=== PATIENT | female | born 2000 | race Caucasian/White ===

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

== ENCOUNTER 2020-01-26 16:26 | Emergency (ER) | payer MEDICAID, SELFPAY ==
[2020-01-26] VITALS (8 sets, daily range): BP systolic 106–128; BP diastolic 52–83; PULSE 100–130; RESP 16–19; TEMP 37.1–38.4; O2SAT 97–100; BMI 26.0
[2020-01-26 18:38] LABS: Basophils % 0.1 %; Hematocrit 40.6 % (37.0-47.0); Hemoglobin 12.9 g/dL (11.5-15.3); Lymphocytes # 0.5 10^3/uL (1.5-6.5); Lymphocytes % 4.9 %; Mean Corpuscular HGB Conc 31.8 g/dL (30.0-36.0); Mean Corpuscular Hemoglobin 26.2 pg (28.0-34.0); Mean Corpuscular Volume 82.4 fL (81-99); Mean Platelet Volume 12.9 fL (7.4-10.4); Monocytes # 0.4 10^3/uL (0.2-0.9); Monocytes % 3.7 %; Neutrophils # 9.49 10^3/uL (1.8-8.0); Neutrophils % 90.9 %; Nucleated Red Blood Cells % 0 %; Platelet Count 193 10^3/cmm (130-400); Red Blood Count 4.93 10^6/uL (4.1-5.3); Red Cell Distribution Width 15.8 % (12.1-15.1); White Blood Count 10.4 10^3/uL (4.5-13.0)
[2020-01-26 18:47] LABS: HCG, Serum Qual Positive (Negative)
--- NOTE | 2020-01-26 18:52 | USR_ITS ---
PROCEDURE INFORMATION: Exam: US First Trimester, Transabdominal Exam date and time: 01/26/2020 7:24 PM Age: 19 years old Clinical indication: Other: Back pain x1 week; Gestational age or lmp: 9w 5d; ; Additional info: Fever, back pain TECHNIQUE: Imaging protocol: Real-time transabdominal obstetrical ultrasound of the maternal pelvis and a first trimester , less than 14 weeks 0 days, with image documentation. COMPARISON: US OB <= 14 weeks fetus [id number] 01/09/2020 10:53 AM FINDINGS: Gestation: Single viable intrauterine with EGA 9 weeks 5 days. 3.5 mm yolk sac. Comparing sagittal image 6 at the beginning of the exam with image 74 at the end of the exam, the contour and position of the gestational sac appears to have changed. On image 6 there may have been a uterine contraction along the posterior wall uterus, and at the end of the exam there may have been uterine contraction over the uterine fundus. This could explain the change in shape and contour of the gestational sac. Embryonic/ heart rate: heart beat 212 bpm consistent with tachycardia which can occur from multiple causes. Placenta: Probable 1.8 x 2.1 x 1.0 cm subchorionic bleed. Amniotic fluid: Amniotic fluid is normal for gestational age. BIOMETRY: Estimated due date (AUA): KAYLI by ultrasound August 25, 2020. [place]-Rump length: 2.84 cm crown-rump length with EGA 8 weeks 6 days. MATERNAL: Uterus: See Gestation finding. Cervix: 3.3 cm closed cervix. Right adnexa: 3.4 x 1.6 x 2.4 cm right ovary with estimated volume 7.1 cc. Left adnexa: 2.0 x 1.9 x 1.6 cm left ovary with estimated volume 3.3 cc. Intraperitoneal space: No intraperitoneal free fluid. US/US OB <= 14 weeks fetus [id number] IMPRESSION: 1. Single viable intrauterine with EGA 9 weeks 5 days. 2. KAYLI by ultrasound August 25, 2020. 3. heart beat 212 bpm consistent with tachycardia which can occur from multiple causes. 4. Probable 1.8 x 2.1 x 1.0 cm subchorionic bleed. 5. 3.3 cm closed cervix. 6. Comparing sagittal image 6 at the beginning of the exam with image 74 at the end of the exam, the contour and position of the gestational sac appears to have changed. On image 6 there may have been a uterine contraction along the posterior wall uterus, and at the end of the exam there may have been uterine contraction over the uterine fundus. This could explain the change in shape and contour of the gestational sac.
--- NOTE | 2020-01-26 18:53 | USR_ITS ---
PROCEDURE INFORMATION: Exam: US Retroperitoneal; Complete; Kidneys and Bladder Exam date and time: 01/26/2020 7:24 PM Age: 19 years old Clinical indication: Pain; Other: Back; ; Additional info: Fever back pain TECHNIQUE: Imaging protocol: Real-time ultrasound of the retroperitoneum with image documentation. Complete exam focused on the kidneys and bladder. COMPARISON: US OB <= 14 weeks fetus [id number] 01/09/2020 10:53 AM FINDINGS: Right kidney: Normal. No stones. No hydronephrosis. Left kidney: Minimally dilated left renal pelvis at 1.2 cm. No obvious hydronephrosis at this time. Aorta: 1.3 cm abdominal aortic diameter. Bladder: Echogenic debris within the urinary bladder suggesting possible urinary tract infection. US/US renal BI* [id number] IMPRESSION: 1. Minimally dilated left renal pelvis at 1.2 cm. No obvious hydronephrosis at this time. 2. Echogenic debris within the urinary bladder suggesting possible urinary tract infection. 3. Unremarkable right kidney.
[2020-01-26 18:58] LABS: Alanine Aminotransferase < 5 U/L (0-33); Albumin Level 4.9 g/dL (3.5-5.2); Alkaline Phosphatase 117 IU/L (35-105); Anion Gap 18.7 (5-19); Aspartate Amino Transferase 10 U/L (0-32); Blood Urea Nitrogen 5 mg/dL (6-20); Calcium 9.8 mg/dL (8.5-10.5); Carbon Dioxide 22 mmol/L (22-29); Chloride 97 mmol/L (98-107); Glomerular Filtration Rate 128.8 mL/min (90-130); Glucose 100 mg/dL (65-115); Osmolality Calculated 275 mOsm/kg (285-295); Potassium 3.7 mmol/L (3.5-5.1); Sodium 134 mmol/L (136-145); Total Bilirubin 0.9 mg/dL (0.15-1.2); Total Protein 7.9 g/dL (6.6-8.7)
[2020-01-26 19:11] LABS: Bilirubin Urine Neg (Negative); Blood Urine 2+ (Negative); Glucose Urine UA Norm (Normal); Ketones Urine 3+ (Negative); Leukocyte Esterase Urine Negative (Negative); Nitrate Urine Positive (Negative); Protein Urine Trace (Negative); Specific Gravity, Urine 1.005 (1.005-1.030); Urine Color Yellow (Yellow); Urobilinogen Urine 4 mg/dL (Negative); pH Urine 5 (5-7)
[2020-01-26 19:14] LABS: Add Urine Culture? No; Bacteria Urine 4+ /hpf; Squamous Epithelial Cell Urine >100 /hpf (0-5); WBC Urine 80-100 /hpf (0-5)
--- NOTE | 2020-01-26 19:19 | W.ED.GENADLT ---
HPI - General Adult General: Chief complaint: General Medical Stated complaint: L flank pain, dizzy, fever Time Seen by Provider: 01/26/20 18:29 History of Present Illness: HPI narrative: 19-year-old female with a history of pyelonephritis presents 10 weeks . She complains of bilateral lower back pain with some dysuria for the past week or so. It is increased over time. She has a fever today. She is nauseated but has not thrown up she says that her symptoms are nearly exactly the same as the time prior when she had pyelonephritis. She has experienced no vaginal bleeding or loss of fluid. She had an ultrasound at 7 weeks showing a heartbeat. Onset (ago): day(s) Location: back Radiation: non-radiation Severity: moderate Quality: stabbing and aching Pain Consistency: constant Relieving factors: none Exacerbating factors: movement Associated symptoms: Reports malaise and nausea; Deny chest pain, confusion, dyspnea, headache(s), rash, short of breath, vomiting or weakness Review of Systems Const: Reports: malaise Eyes: Denies: blurry vision ENMT: Denies: odynophagia, dental pain or sinus pain Card: Denies: chest pain Resp: Denies: dyspnea, productive cough, non-productive cough or wheezing GI: Reports: nausea; Denies: vomiting : Reports: dysuria and urinary frequency; Denies: urinary urgency or hematuria Musc: Reports: back pain; Denies: neck pain Skin/Breast: Denies: rash Neuro: Denies: headache(s), confusion or seizure-like activity Psych: Denies: anxiety PFSH ED PFSH: Social History (Updated 01/26/20 @ 17:15 by Brennen Medina RN) Smoking and tobacco status: never smoked Alcohol intake: never Substance/Drug Use: never Number of children: 1 Female Reproductive History: Date of last menstrual period: 09/25/19 Physical Exam Const: GENERAL APPEARANCE: well developed ORIENTATION/CONSCIOUSNESS: Yes oriented to person, Yes oriented to place and Yes oriented to time HENMT: COMMON NORMALS: normocephalic, external ears normal and Normal external nose present HEAD & SCALP: normocephalic FACE & SINUS: normal facial exam NOSE: Normal external nose present and No nasal discharge present EXTERNAL EAR: Yes external ears normal Eye: COMMON NORMALS: Equal, round and reactive pupils present, EOMs intact bilaterally and conjunctivae normal EYELID: eyelids normal CONJUNCTIVA: Yes conjunctivae normal PUPIL: Yes Equal, round and reactive pupils present Neck/C-Spine: COMMON NORMALS: full ROM GENERAL: No tracheal deviation Chest: COMMONS NORMALS: normal inspection of the chest CHEST: No tenderness Resp: COMMON NORMALS: clear to auscultation bilaterally EFFORT & INSPECTION: No tachypneic, No respiratory distress, No retractions, No uses accessory muscles and No tracheal deviation AUSCULTATION: clear to auscultation bilaterally, no rhonchi, no wheezes and lung sounds not diminished Cardio: COMMON NORMALS: regular rate and regular rhythm RATE: regular rate RHYTHM: regular rhythm HEART SOUNDS: no murmurs PERIPHERAL PULSES: radial pulses present GI: INSPECTION: No abdominal distension AUSCULTATION: No Hyperactive bowel sounds present and No Hypoactive bowel sounds present PALPATION: No Guarding due to palpation present (GI) and No Rigid due to palpation PERCUSSION: no dullness to percussion and no tympanic to percussion : COMMON NORMALS: Yes no CVA tenderness BLADDER/KIDNEY EXAM: Yes no CVA tenderness Back/Pelvis: COMMON NORMALS: no CVA tenderness Neuro: SENSORIUM/ORIENTATION: Yes oriented to person, Yes oriented to place and Yes oriented to time Psych: COMMON NORMALS: mental status grossly normal Skin: COMMON NORMALS: no rashes or lesions noted GENERAL SKIN EXAM: no rashes or lesions noted Course Consultations: Consultation #1: karo Time: 21:53 Vital Signs: Vital signs: Vital Signs Temperature 98.8 F 01/26/20 22:11 Pulse Rate 120 H 01/26/20 22:11 Respiratory Rate 18 01/26/20 22:11 Blood Pressure 109/77 01/26/20 22:11 Pulse Oximetry 97 01/26/20 22:11 MDM - General Adult MDM Narrative: Medical decision making narrative: 19-year-old G3, P1 presenting with bilateral low back pain, and some dysuria with fever she was diagnosed earlier today with UTI in clinic. She was not able to get her antibiotics filled. She comes in with a fever. She is not vomiting. She received 1 L of IV fluid, with 1 g of Rocephin. Urine culture from here in clinic is pending ultrasound shows a 9-week 5-day , intrauterine, with an elevated heart rate consistent with maternal fever. There is a small subchorionic bleed. Patient does not have any vaginal bleeding, and the cervix is closed. There is no hydronephrosis on ultrasound. Spoke with her medical writer. In the absence of vomiting, with a white count of only 10, and above findings she could go home. She agrees. Pain control, continue the antibiotics prescribed to her earlier today, which is cefuroxime, with control of fever and plenty of hydration. She knows to return for any worsening symptoms, continued fever, or vaginal bleeding. Lab Data: Labs: Lab Results 01/26/20 01/26/20 01/26/20 Range/Units 18:16 18:16 18:16 WBC 10.4 (4.5-13.0) 10^3/ uL RBC 4.93 (4.1-5.3) 10^6/u L Hgb 12.9 (11.5-15.3) g/dL Hct 40.6 (37.0-47.0) % MCV 82.4 (81-99) fL MCH 26.2 L (28.0-34.0) pg MCHC 31.8 (30.0-36.0) g/dL RDW 15.8 H (12.1-15.1) % Plt Count 193 (130-400) 10^3/c mm MPV 12.9 H (7.4-10.4) fL Neut % (Auto) 90.9 % Lymph % (Auto) 4.9 % Esmeralda % (Auto) 3.7 % Eos % (Auto) 0.0 % Baso % (Auto) 0.1 % Neut # (Auto) 9.49 H (1.8-8.0) 10^3/u L Lymph # (Auto) 0.5 L (1.5-6.5) 10^3/u L Esmeralda # (Auto) 0.4 (0.2-0.9) 10^3/u L Eos # (Auto) 0.0 (0.0-0.8) 10^3/u L Baso # (Auto) 0.0 (0.0-0.1) 10^3/u L Nucleated RBC % (a uto) 0 % Nucleated RBCs # 0.0 /100WBC Sodium 134 L (136-145) mmol/L Potassium 3.7 (3.5-5.1) mmol/L Chloride 97 L (98-107) mmol/L Carbon Dioxide 22 (22-29) mmol/L Anion Gap 18.7 (5-19) BUN 5 L (6-20) mg/dL Creatinine 0.6 (0.5-0.9) mg/dL GFR Calculation 128.8 (90-130) mL/min Glucose 100 (65-115) mg/dL Calculated Osmolal ity 275 L (285-295) mOsm/k g Calcium 9.8 (8.5-10.5) mg/dL Total Bilirubin 0.9 (0.15-1.2) mg/dL AST 10 (0-32) U/L ALT < 5 (0-33) U/L Alkaline Phosphata se 117 H (35-105) IU/L Total Protein 7.9 (6.6-8.7) g/dL Albumin 4.9 (3.5-5.2) g/dL Globulin 3.0 (1.3-4.6) g/dL HCG, Qual Positive H (Negative) Ser , Fawn i-Qnt mIU/mL Urine Color (Yellow) Urine Appearance (CLEAR) Urine pH (5-7) Ur Specific Gravit y (1.005-1.030) Urine Protein (Negative) Urine Glucose (UA) (Normal) Urine Ketones (Negative) Urine Blood (Negative) Urine Nitrate (Negative) Urine Bilirubin (Negative) Urine Urobilinogen (Negative) mg/dL Ur Leukocyte Kamila ase (Negative) Urine RBC (0-2) /hpf Urine WBC (0-5) /hpf Ur Squamous Epith Cells (0-5) /hpf Amorphous Sediment Urine Bacteria (NONE) /hpf 01/26/20 01/26/20 Range/Units 18:16 18:40 WBC (4.5-13.0) 10^3/ uL RBC (4.1-5.3) 10^6/u L Hgb (11.5-15.3) g/dL Hct (37.0-47.0) % MCV (81-99) fL MCH (28.0-34.0) pg MCHC (30.0-36.0) g/dL RDW (12.1-15.1) % Plt Count (130-400) 10^3/c mm MPV (7.4-10.4) fL Neut % (Auto) % Lymph % (Auto) % Esmeralda % (Auto) % Eos % (Auto) % Baso % (Auto) % Neut # (Auto) (1.8-8.0) 10^3/u L Lymph # (Auto) (1.5-6.5) 10^3/u L Esmeralda # (Auto) (0.2-0.9) 10^3/u L Eos # (Auto) (0.0-0.8) 10^3/u L Baso # (Auto) (0.0-0.1) 10^3/u L Nucleated RBC % (a uto) % Nucleated RBCs # /100WBC Sodium (136-145) mmol/L Potassium (3.5-5.1) mmol/L Chloride (98-107) mmol/L Carbon Dioxide (22-29) mmol/L Anion Gap (5-19) BUN (6-20) mg/dL Creatinine (0.5-0.9) mg/dL GFR Calculation (90-130) mL/min Glucose (65-115) mg/dL Calculated Osmolal ity (285-295) mOsm/k g Calcium (8.5-10.5) mg/dL Total Bilirubin (0.15-1.2) mg/dL AST (0-32) U/L ALT (0-33) U/L Alkaline Phosphata se (35-105) IU/L Total Protein (6.6-8.7) g/dL Albumin (3.5-5.2) g/dL Globulin (1.3-4.6) g/dL HCG, Qual (Negative) Ser , [place]Qnt 61301.00 mIU/mL Urine Color Yellow (Yellow) Urine Appearance Sl cloudy A (CLEAR) Urine pH 5 (5-7) Ur Specific Gravit y 1.005 (1.005-1.030) Urine Protein Trace (Negative) Urine Glucose (UA) Norm (Normal) Urine Ketones 3+ H (Negative) Urine Blood 2+ H (Negative) Urine Nitrate Positive H (Negative) Urine Bilirubin Neg (Negative) Urine Urobilinogen 4 H (Negative) mg/dL Ur Leukocyte Kamila ase Negative (Negative) Urine RBC 5-10 H (0-2) /hpf Urine WBC 80-100 H (0-5) /hpf Ur Squamous Epith Cells >100 H (0-5) /hpf Amorphous Sediment Not Reportable Urine Bacteria 4+ H (NONE) /hpf Discharge Plan Discharge Patient Disposition: Home Clinical Impression: Pyelonephritis Subchorionic hematoma Qualifiers: Fetus number: single or unspecified fetus Trimester: first trimester Qualified Code(s): O41.8X10 - Other specified disorders of amniotic fluid and membranes, first trimester, not applicable or unspecified Condition: Stable Prescriptions: [place] 7.5-325 mg tablet 1 tab PO TID PRN (Reason: pain) Qty: 10 RF: 0 Reglan 10 mg tablet 10 mg PO Q6H PRN (Reason: nausea and vomiting) Qty: 10 RF: 0 No Action Protonix [address] for susp in packet 40 mg PO DAILY Qty: 10 RF: 0 ferrous sulfate 325 mg (65 mg iron) Tablet,Delayed Release (Dr/Ec) 325 mg PO BIDWM Qty: 60 RF: 0 Discharge Orders: Discharge Order (Routine); Ordered 01/26/20 Ordered By: Jere Stewart Referrals: [facility], [place], [Family Provider] - Kwaku Barber MD [Primary Care Provider] - 4-7 days Discharge Diet: Advance as tolerated Discharge Activity: Limit activity as instructed Patient Instructions: Acute Pyelonephritis (ED) Activity Restrictions/Additional Instructions: Return for continued fever greater than 100 despite 3 doses of antibiotics, vomiting, worsening pain despite treatment, or the development of vaginal bleeding. Pelvic rest until seen by your doctor, which means limit lifting to 10 to 15 pounds, limit squatting and stairs, and limit sexual intercourse. Discharge Date/Time: 01/26/20 22:12 Coding Level of Care Code ED Mechanic Assistant for Chg Fwd Exam Comprehensive
[2020-01-26] MEDS: cefTRIAXone 1,000 MG in sodium chloride 0.9% (plus) 50 ML 100 MG IV (19:22)
[2020-01-26] MEDS: sodium chloride 0.9% 1,000 ML 999 ML IV (19:23)
[2020-01-26] MEDS: ondansetron 2 mg/ML SDV 2 mL 4 MG IVP (20:22)
[2020-01-26] MEDS: morphine 4 mg/mL SDV 1 mL IVP (20:24)
[2020-01-26] MEDS: acetaminophen 500 mg Tablet 1000 MG PO (20:56)
== END 2020-01-26 22:12 | disposition home or self-care (01) ==
PROVIDERS: Emergency Medicine; Emergency Provider Emergency Medicine; PCP Family Medicine
DX: O41.8X10 Other specified disorders of amniotic fluid and membranes, first trimester, not applicable or unspecified (principal); O23.01 Infections of kidney in pregnancy, first trimester; Z3A.09 9 weeks gestation of pregnancy
CPT/HCPCS: 12345; 36415; 76770; 76801; 80053; 81001; 84702; 84703; 85025; 96365; 96375; 99283; 99284; J0696; J2270; J2405; J7030

== ENCOUNTER 2020-01-27 15:00 | Inpatient (IN) | payer MEDICAID, SELFPAY ==
[2020-01-27] VITALS (7 sets, daily range): BP systolic 113–122; BP diastolic 70–83; PULSE 92–123; RESP 14–18; TEMP 37.1–37.7; O2SAT 98–100; BMI 26.4
--- NOTE | 2020-01-27 15:35 | ED_ITS ---
Documented by User: ROSA Lyons 01/28/20 13:59 HPI - General Adult General: Chief complaint: Abdominal Pain Stated complaint: Abdominal Pain Time Seen by Provider: 01/27/20 15:30 History of Present Illness: HPI narrative: Patient was seen here in the ER last night diagnosed pyelonephritis ER doc try to get her to be admitted patient 1 go home. Patient says she feels worse today her low back hurts been running fever she is dizzy when she sits up or stands up. Has not been vomiting. Denies any shortness of breath. MD complaint: pyleonephritis with symptoms Onset (ago): day(s) Location: back Radiation: non-radiation Severity: moderate Severity scale (1-10): 3 Exacerbating factors: movement Associated symptoms: Reports fevers/chills and other (Flank discomfort and d izziness); Deny chest pain, dyspnea, headache(s), nausea, rash or vomiting Review of Systems Const: Denies: fever(s), chills or body aches Eyes: Denies: change in vision or blurry vision ENMT: Denies: throat pain or nasal congestion Card: Denies: chest pain or dyspnea on exertion Resp: Denies: dyspnea, productive cough or non-productive cough GI: Denies: abdominal pain, nausea or vomiting : Reports: flank pain Musc: Denies: extremity pain Skin/Breast: Denies: rash Neuro: Reports: dizziness; Denies: headache(s) Psych: Denies: anxiety or depression Vj/Lymph: Denies: easy bruising PFSH ED PFSH: Social History (Updated 01/26/20 @ 17:15 by Brennen Medina RN) Smoking and tobacco status: never smoked Alcohol intake: never Number of children: 1 Female Reproductive History: Date of last menstrual period: 09/25/19 Physical Exam Const: COMMON NORMALS: no acute distress, average body habitus and patient oriented x3 HENMT: COMMON NORMALS: normocephalic HEAD & SCALP: normal to inspection and normocephalic FACE & SINUS: normal facial exam Eye: COMMON NORMALS: conjunctivae normal GENERAL EYE: appearance normal, both eyes and all related structures CONJUNCTIVA: Yes conjunctivae normal Neck/C-Spine: COMMON NORMALS: no JVD Chest: COMMONS NORMALS: normal inspection of the chest Resp: COMMON NORMALS: normal respiratory effort and clear to auscultation bilaterally AUSCULTATION: clear to auscultation bilaterally Cardio: COMMON NORMALS: no JVD, regular rate and regular rhythm RATE: regular rate RHYTHM: regular rhythm GI: COMMON NORMALS: Normal to inspection, nondistended, normoactive bowel sounds present : COMMON NORMALS: No no CVA tenderness BLADDER/KIDNEY EXAM: No no CVA tenderness Back/Pelvis: COMMON NORMALS: negative for no CVA tenderness Extremity: COMMON NORMALS: normal to inspection and full ROM Neuro: COMMON NORMALS: patient oriented x3 Course Vital Signs: Vital signs: Vital Signs Temperature 98.5 F 01/28/20 12:00 Pulse Rate 86 01/28/20 12:00 Respiratory Rate 18 01/28/20 12:00 Blood Pressure 109/71 01/28/20 12:00 Pulse Oximetry 97 01/28/20 04:00 [facility] - General Adult Lab Data: Labs: Lab Results 01/27/20 01/27/20 01/27/20 Range/Units 15:39 15:39 15:39 WBC 11.3 (4.5-13.0) 10^3/ uL RBC 4.46 (4.1-5.3) 10^6/u L Hgb 11.8 (11.5-15.3) g/dL Hct 37.1 (37.0-47.0) % MCV 83.2 (81-99) fL MCH 26.5 L (28.0-34.0) pg MCHC 31.8 (30.0-36.0) g/dL RDW 15.6 H (12.1-15.1) % Plt Count 143 (130-400) 10^3/c mm MPV 12.5 H (7.4-10.4) fL Neut % (Auto) 86.4 % Lymph % (Auto) 5.2 % Glades % (Auto) 7.8 % Eos % (Auto) 0.0 % Baso % (Auto) 0.2 % Neut # (Auto) 9.71 H (1.8-8.0) 10^3/u L Lymph # (Auto) 0.6 L (1.5-6.5) 10^3/u L Glades # (Auto) 0.9 (0.2-0.9) 10^3/u L Eos # (Auto) 0.0 (0.0-0.8) 10^3/u L Baso # (Auto) 0.0 (0.0-0.1) 10^3/u L Nucleated RBC % (a uto) 0 % Nucleated RBCs # 0.0 /100WBC Sodium 130 L (136-145) mmol/L Potassium 3.4 L (3.5-5.1) mmol/L Chloride 97 L (98-107) mmol/L Carbon Dioxide 20 L (22-29) mmol/L Anion Gap 16.4 (5-19) BUN 5 L (6-20) mg/dL Creatinine 0.5 (0.5-0.9) mg/dL GFR Calculation 158.9 H (90-130) mL/min Glucose 100 (65-115) mg/dL Calculated Osmolal ity 267 L (285-295) mOsm/k g Lactate (0.5-2.2) mmol/L Calcium 9.1 (8.5-10.5) mg/dL Magnesium (1.7-2.2) mg/dL Total Bilirubin 0.9 (0.15-1.2) mg/dL AST 10 (0-32) U/L ALT 6 (0-33) U/L Alkaline Phosphata se 107 H (35-105) IU/L Total Protein 7.3 (6.6-8.7) g/dL Albumin 4.1 (3.5-5.2) g/dL Globulin 3.2 (1.3-4.6) g/dL Lipase 12 L (13-60) U/L HCG, Qual Positive H (Negative) Urine Color (Yellow) Urine Appearance (CLEAR) Urine pH (5-7) Ur Specific Gravit y (1.005-1.030) Urine Protein (Negative) Urine Glucose (UA) (Normal) Urine Ketones (Negative) Urine Blood (Negative) Urine Nitrate (Negative) Urine Bilirubin (Negative) Urine Urobilinogen (Negative) mg/dL Ur Leukocyte Kamila ase (Negative) Urine RBC (0-2) /hpf Urine WBC (0-5) /hpf Ur Squamous Epith Cells (0-5) /hpf Ur Transition Epit h Cell /hpf Amorphous Sediment Urine Bacteria (NONE) /hpf Urine Mucus /hpf 01/27/20 01/27/20 01/27/20 Range/Units 15:39 15:51 16:43 WBC (4.5-13.0) 10^3/ uL RBC (4.1-5.3) 10^6/u L Hgb (11.5-15.3) g/dL Hct (37.0-47.0) % MCV (81-99) fL MCH (28.0-34.0) pg MCHC (30.0-36.0) g/dL RDW (12.1-15.1) % Plt Count (130-400) 10^3/c mm MPV (7.4-10.4) fL Neut % (Auto) % Lymph % (Auto) % Glades % (Auto) % Eos % (Auto) % Baso % (Auto) % Neut # (Auto) (1.8-8.0) 10^3/u L Lymph # (Auto) (1.5-6.5) 10^3/u L Glades # (Auto) (0.2-0.9) 10^3/u L Eos # (Auto) (0.0-0.8) 10^3/u L Baso # (Auto) (0.0-0.1) 10^3/u L Nucleated RBC % (a uto) % Nucleated RBCs # /100WBC Sodium (136-145) mmol/L Potassium (3.5-5.1) mmol/L Chloride (98-107) mmol/L Carbon Dioxide (22-29) mmol/L Anion Gap (5-19) BUN (6-20) mg/dL Creatinine (0.5-0.9) mg/dL GFR Calculation (90-130) mL/min Glucose (65-115) mg/dL Calculated Osmolal ity (285-295) mOsm/k g Lactate 0.9 (0.5-2.2) mmol/L Calcium (8.5-10.5) mg/dL Magnesium 1.8 (1.7-2.2) mg/dL Total Bilirubin (0.15-1.2) mg/dL AST (0-32) U/L ALT (0-33) U/L Alkaline Phosphata se (35-105) IU/L Total Protein (6.6-8.7) g/dL Albumin (3.5-5.2) g/dL Globulin (1.3-4.6) g/dL Lipase (13-60) U/L HCG, Qual (Negative) Urine Color Yellow (Yellow) Urine Appearance Hazy A (CLEAR) Urine pH 5 (5-7) Ur Specific Gravit y 1.020 (1.005-1.030) Urine Protein Trace (Negative) Urine Glucose (UA) Norm (Normal) Urine Ketones 3+ H (Negative) Urine Blood Trace H (Negative) Urine Nitrate Negative (Negative) Urine Bilirubin Neg (Negative) Urine Urobilinogen 1 H (Negative) mg/dL Ur Leukocyte Kamila ase 2+ H (Negative) Urine RBC 0-4 H (0-2) /hpf Urine WBC 55-80 H (0-5) /hpf Ur Squamous Epith Cells 25-40 H (0-5) /hpf Ur Transition Epit h Cell 0-4 /hpf Amorphous Sediment Not Reportable Urine Bacteria 2+ H (NONE) /hpf Urine Mucus 2+ /hpf Discharge Plan Discharge Patient Disposition: Placed in Observation Admit Provider: Kwaku Barber Clinical Impression: Pyelonephritis Currently Qualifiers: Weeks of gestation: 10 weeks Qualified Code(s): Z3A.10 - 10 weeks gestation of Condition: Stable Referrals: Kwaku Barber MD [Primary Care Provider] - Discharge Date/Time: 01/27/20 17:44 Sign Out Sign Out Data: Patient Sign Out occurred on 01/27/20 at 16:49. Patient's care was discussed, and care was transferred from to Indu Boland. Coding Level of Care Code ED Automatic Winder Operator for Chg Fwd Exam Comprehensive Documented by User: Indu Boland 01/27/20 17:07 HPI - General Adult General: Chief complaint: Abdominal Pain Stated complaint: Abdominal Pain Time Seen by Provider: 01/27/20 15:30 PFSH ED PFSH: Social History (Updated 01/26/20 @ 17:15 by Brennen Medina RN) Smoking and tobacco status: never smoked Alcohol intake: never Number of children: 1 Course Vital Signs: Vital signs: Vital Signs Temperature 98.5 F 01/28/20 12:00 Pulse Rate 86 01/28/20 12:00 Respiratory Rate 18 01/28/20 12:00 Blood Pressure 109/71 01/28/20 12:00 Pulse Oximetry 97 01/28/20 04:00 MDM - General Adult MDM Narrative: Medical decision making narrative: 0615 -[facility] Patient remains tachycardic and nauseated but has kept down some water here. Her pain is still significant but she does say slightly improved with IV fluids. Patient was offered admission last night but declined. Today her white count is slightly higher and still her urine shows signs of infection. Denies any vaginal discharge or bleeding. Bedside ultrasound by me revealed a normal heart rate with a small intrauterine . Patient does not have any significant flank pain or abdominal pain at this time. I reviewed the case in full with Dr. Barber who is agreeable to admission for UTI with uncontrolled pain and nausea. Patient will of had 2 L of normal saline here along with IV Rocephin, blood cultures and lactic are pending. Patient will get study IV fluids on the floor along with continued IV antibiotics. Overall at this time she is much improved. Lab Data: Attestation: I reviewed the patient's lab results. Labs: Lab Results 01/27/20 01/27/20 01/27/20 Range/Units 15:39 15:39 15:39 WBC 11.3 (4.5-13.0) 10^3/ uL RBC 4.46 (4.1-5.3) 10^6/u L Hgb 11.8 (11.5-15.3) g/dL Hct 37.1 (37.0-47.0) % MCV 83.2 (81-99) fL MCH 26.5 L (28.0-34.0) pg MCHC 31.8 (30.0-36.0) g/dL RDW 15.6 H (12.1-15.1) % Plt Count 143 (130-400) 10^3/c mm MPV 12.5 H (7.4-10.4) fL Neut % (Auto) 86.4 % Lymph % (Auto) 5.2 % Glades % (Auto) 7.8 % Eos % (Auto) 0.0 % Baso % (Auto) 0.2 % Neut # (Auto) 9.71 H (1.8-8.0) 10^3/u L Lymph # (Auto) 0.6 L (1.5-6.5) 10^3/u L Glades # (Auto) 0.9 (0.2-0.9) 10^3/u L Eos # (Auto) 0.0 (0.0-0.8) 10^3/u L Baso # (Auto) 0.0 (0.0-0.1) 10^3/u L Nucleated RBC % (a uto) 0 % Nucleated RBCs # 0.0 /100WBC Sodium 130 L (136-145) mmol/L Potassium 3.4 L (3.5-5.1) mmol/L Chloride 97 L (98-107) mmol/L Carbon Dioxide 20 L (22-29) mmol/L Anion Gap 16.4 (5-19) BUN 5 L (6-20) mg/dL Creatinine 0.5 (0.5-0.9) mg/dL GFR Calculation 158.9 H (90-130) mL/min Glucose 100 (65-115) mg/dL Calculated Osmolal ity 267 L (285-295) mOsm/k g Lactate (0.5-2.2) mmol/L Calcium 9.1 (8.5-10.5) mg/dL Magnesium (1.7-2.2) mg/dL Total Bilirubin 0.9 (0.15-1.2) mg/dL AST 10 (0-32) U/L ALT 6 (0-33) U/L Alkaline Phosphata se 107 H (35-105) IU/L Total Protein 7.3 (6.6-8.7) g/dL Albumin 4.1 (3.5-5.2) g/dL Globulin 3.2 (1.3-4.6) g/dL Lipase 12 L (13-60) U/L HCG, Qual Positive H (Negative) Urine Color (Yellow) Urine Appearance (CLEAR) Urine pH (5-7) Ur Specific Gravit y (1.005-1.030) Urine Protein (Negative) Urine Glucose (UA) (Normal) Urine Ketones (Negative) Urine Blood (Negative) Urine Nitrate (Negative) Urine Bilirubin (Negative) Urine Urobilinogen (Negative) mg/dL Ur Leukocyte Kamila ase (Negative) Urine RBC (0-2) /hpf Urine WBC (0-5) /hpf Ur Squamous Epith Cells (0-5) /hpf Ur Transition Epit h Cell /hpf Amorphous Sediment Urine Bacteria (NONE) /hpf Urine Mucus /hpf 01/27/20 01/27/20 01/27/20 Range/Units 15:39 15:51 16:43 WBC (4.5-13.0) 10^3/ uL RBC (4.1-5.3) 10^6/u L Hgb (11.5-15.3) g/dL Hct (37.0-47.0) % MCV (81-99) fL MCH (28.0-34.0) pg MCHC (30.0-36.0) g/dL RDW (12.1-15.1) % Plt Count (130-400) 10^3/c mm MPV (7.4-10.4) fL Neut % (Auto) % Lymph % (Auto) % Glades % (Auto) % Eos % (Auto) % Baso % (Auto) % Neut # (Auto) (1.8-8.0) 10^3/u L Lymph # (Auto) (1.5-6.5) 10^3/u L Glades # (Auto) (0.2-0.9) 10^3/u L Eos # (Auto) (0.0-0.8) 10^3/u L Baso # (Auto) (0.0-0.1) 10^3/u L Nucleated RBC % (a uto) % Nucleated RBCs # /100WBC Sodium (136-145) mmol/L Potassium (3.5-5.1) mmol/L Chloride (98-107) mmol/L Carbon Dioxide (22-29) mmol/L Anion Gap (5-19) BUN (6-20) mg/dL Creatinine (0.5-0.9) mg/dL GFR Calculation (90-130) mL/min Glucose (65-115) mg/dL Calculated Osmolal ity (285-295) mOsm/k g Lactate 0.9 (0.5-2.2) mmol/L Calcium (8.5-10.5) mg/dL Magnesium 1.8 (1.7-2.2) mg/dL Total Bilirubin (0.15-1.2) mg/dL AST (0-32) U/L ALT (0-33) U/L Alkaline Phosphata se (35-105) IU/L Total Protein (6.6-8.7) g/dL Albumin (3.5-5.2) g/dL Globulin (1.3-4.6) g/dL Lipase (13-60) U/L HCG, Qual (Negative) Urine Color Yellow (Yellow) Urine Appearance Hazy A (CLEAR) Urine pH 5 (5-7) Ur Specific Gravit y 1.020 (1.005-1.030) Urine Protein Trace (Negative) Urine Glucose (UA) Norm (Normal) Urine Ketones 3+ H (Negative) Urine Blood Trace H (Negative) Urine Nitrate Negative (Negative) Urine Bilirubin Neg (Negative) Urine Urobilinogen 1 H (Negative) mg/dL Ur Leukocyte Kamila ase 2+ H (Negative) Urine RBC 0-4 H (0-2) /hpf Urine WBC 55-80 H (0-5) /hpf Ur Squamous Epith Cells 25-40 H (0-5) /hpf Ur Transition Epit h Cell 0-4 /hpf Amorphous Sediment Not Reportable Urine Bacteria 2+ H (NONE) /hpf Urine Mucus 2+ /hpf Discharge Plan Discharge Patient Disposition: Placed in Observation Admit Provider: Kwaku Barber Clinical Impression: Pyelonephritis Currently Qualifiers: Weeks of gestation: 10 weeks Qualified Code(s): Z3A.10 - 10 weeks gestation of Condition: Stable Referrals: Kwaku Barber MD [Primary Care Provider] - Discharge Date/Time: 01/27/20 17:44 Sign Out Sign Out Data: Patient Sign Out occurred on 01/27/20 at 16:49. Patient's care was discussed, and care was transferred from to Indu Boland. Coding Level of Care Code ED Automatic Winder Operator for g Fwd Exam Comprehensive
[2020-01-27 15:44] LABS: Basophils % 0.2 %; Hematocrit 37.1 % (37.0-47.0); Hemoglobin 11.8 g/dL (11.5-15.3); Lymphocytes # 0.6 10^3/uL (1.5-6.5); Lymphocytes % 5.2 %; Mean Corpuscular HGB Conc 31.8 g/dL (30.0-36.0); Mean Corpuscular Hemoglobin 26.5 pg (28.0-34.0); Mean Corpuscular Volume 83.2 fL (81-99); Mean Platelet Volume 12.5 fL (7.4-10.4); Monocytes # 0.9 10^3/uL (0.2-0.9); Monocytes % 7.8 %; Neutrophils # 9.71 10^3/uL (1.8-8.0); Neutrophils % 86.4 %; Nucleated Red Blood Cells % 0 %; Platelet Count 143 10^3/cmm (130-400); Red Blood Count 4.46 10^6/uL (4.1-5.3); Red Cell Distribution Width 15.6 % (12.1-15.1); White Blood Count 11.3 10^3/uL (4.5-13.0)
[2020-01-27] MEDS: ondansetron 2 mg/ML SDV 2 mL 4 MG IVP (15:53)
[2020-01-27] MEDS: sodium chloride 0.9% 1,000 ML 999 ML IV ×2 (15:53→17:32)
[2020-01-27 15:59] LABS: HCG, Serum Qual Positive (Negative)
[2020-01-27 16:12] LABS: Alanine Aminotransferase 6 U/L (0-33); Albumin Level 4.1 g/dL (3.5-5.2); Alkaline Phosphatase 107 IU/L (35-105); Anion Gap 16.4 (5-19); Aspartate Amino Transferase 10 U/L (0-32); Blood Urea Nitrogen 5 mg/dL (6-20); Calcium 9.1 mg/dL (8.5-10.5); Carbon Dioxide 20 mmol/L (22-29); Chloride 97 mmol/L (98-107); Globulin 3.2 g/dL (1.3-4.6); Glomerular Filtration Rate 158.9 mL/min (90-130); Glucose 100 mg/dL (65-115); Lipase 12 U/L (13-60); Osmolality Calculated 267 mOsm/kg (285-295); Potassium 3.4 mmol/L (3.5-5.1); Sodium 130 mmol/L (136-145); Total Bilirubin 0.9 mg/dL (0.15-1.2); Total Protein 7.3 g/dL (6.6-8.7)
[2020-01-27 16:20] LABS: Protein Urine Trace (Negative); Urine Appearance Hazy (CLEAR); Urine Color Yellow (Yellow); pH Urine 5 (5-7)
[2020-01-27 16:21] LABS: Bilirubin Urine Neg (Negative); Blood Urine Trace (Negative); Glucose Urine UA Norm (Normal); Ketones Urine 3+ (Negative); Leukocyte Esterase Urine 2+ (Negative); Nitrate Urine Negative (Negative); Urobilinogen Urine 1 mg/dL (Negative)
[2020-01-27 16:22] LABS: Bacteria Urine 2+ /hpf; Mucus Urine 2+ /hpf; RBC Urine 0-4 /hpf (0-2); Squamous Epithelial Cell Urine 25-40 /hpf (0-5); Transitional Epi Cells Urine 0-4 /hpf; WBC Urine 55-80 /hpf (0-5)
[2020-01-27 16:23] LABS: Add Urine Culture? No
[2020-01-27] MEDS: morphine 4 mg/mL SDV 1 mL 2 MG IVP (16:36)
[2020-01-27 17:05] LABS: Lactate (Lactic Acid level) 0.9 mmol/L (0.5-2.2)
[2020-01-27] MEDS: cefTRIAXone 1,000 MG in sodium chloride 0.9% (plus) 50 ML 100 MG IV (17:32)
[2020-01-27] MEDS: potassium chloride ER 10 mEq Tablet 40 MEQ PO (17:32)
--- NOTE | 2020-01-27 18:09 | P.HP_ITS ---
Providers/Chief Complaint Admitting Physician: Kwaku Barber MD Primary Care Provider: Kwaku Barber MD Chief Complaint: Abdominal Pain History of Present Illness Dawna Smyth is a 19 year old female who is a 2 para 1 female at approximately 9-1/2 weeks gestation. She began having some flank pain and dysuria a couple of days ago. She was evaluated by a urinalysis in the clinic on Wednesday and was started on cefuroxime as she definitely had a urinary tract infection. She had increasing flank pain yesterday and went to the emergency department yesterday evening where again she demonstrated a urinary tract infection. Ultrasound demonstrated no definite hydronephrosis or other abnormalities and OB ultrasound demonstrated a 9-week 5-day fetus with a small subchorionic hemorrhage. She denies any bleeding. She does have some nausea and decreased appetite. She has not had any emesis. She complains of flank pain bilaterally and suprapubic pain. No significant dysuria however. He has been febrile with a temperature up to 102 ?F today. Review of Systems Const: Reports: fever(s), chills, body aches and change in appetite (Decreased appetite.) ENMT: Denies: throat pain or oral sores Card: Denies: chest pain, palpitations, irregular heart rhythm or edema Resp: Denies: dyspnea, productive cough or non-productive cough GI: Reports: abdominal pain (Suprapubic and flank bilaterally.) and nausea; Denies: vomiting or hematochezia : Reports: flank pain, urinary frequency and pelvic pain Musc: Denies: neck pain, back pain or joint pain Skin/Breast: Denies: rash Neuro: Reports: dizziness; Denies: headache(s), numbness in extremities, lack of coordination, difficulty walking or confusion Psych: Reports: anxiety; Denies: depression or irritability Endo: Denies: polyuria, cold intolerance or heat intolerance Vj/Lymph: Denies: easy bruising Medications/Allergies Home Medications Medication Instructions Recorded Confirmed Last Taken Type hydrocodone-acetaminophen [[place]] 1 tab PO TID PRN #10 tab 01/26/20 01/27/20 01/27/20 Rx Allergies Allergy/AdvReac Type Severity Reaction Status Date / Time No Known Allergies Allergy Verified 11/13/19 20:21 PFSH Acute PFSH: Social History (Updated 10/16/20 @ 17:15 by Brennen Medina RN) Smoking and tobacco status: never smoked Alcohol intake: never Number of children: 1 Female Reproductive History: Date of last menstrual period: 09/25/19 Vitals/I&O/Wt Last Vital Signs Temp 99.3 F 01/27/20 15:21 Pulse 93 01/27/20 17:39 Resp 16 01/27/20 17:39 BP 119/74 01/27/20 17:39 Pulse Ox 99 01/27/20 17:39 Weight last 48 hrs Weight 78.925 kg Physical Exam Const: COMMON NORMALS: no acute distress and average body habitus GENERAL APPEARANCE: cooperative and comfortable HENMT: COMMON NORMALS: moist oral mucous membranes Resp: COMMON NORMALS: normal respiratory effort, No retractions, No use of accessory muscles and clear to auscultation bilaterally Cardio: COMMON NORMALS: regular rate (She had some tachycardia in the emergency department but it is better now.), regular rhythm and No murmurs present (Cardio) GI: COMMON NORMALS: Soft to palpation; negative for non-tender PALPATION: Yes Tenderness to palpation present (GI) (Tender in the right flank and adnexal area and suprapubic area. Minimal tenderness on the left.) Back/Pelvis: COMMON NORMALS: no thoracic nor lumbar tenderness GENERAL BACK: Yes CVA tenderness (More on the right than the left. This is mild in nature.) Extremity: COMMON NORMALS: normal to inspection, full ROM and no pedal edema Neuro: SENSORIUM/ORIENTATION: Yes alert CRANIAL NERVES: Yes CN normal except as noted Psych: COMMON NORMALS: mental status grossly normal and normal affect MOOD & AFFECT: Yes anxious (Mildly anxious.) Data : 01/27/20 15:39 01/27/20 15:39 Micro: Microbiology 01/27/20 17:21 Blood Culture - Preliminary Blood SPECIMEN COLLECTED 01/27/20 17:17 Blood Culture - Preliminary Blood SPECIMEN COLLECTED A&P Assessment and plan (1) Pyelonephritis: Suspect recurrent pyelonephritis. She had a episode in August of this year. At that time she grew E. coli which was pretty much pansensitive. Plan in travenous ceftriaxone and intravenous fluids. Pain medicines and antiemetics as needed. Status: Acute (2) Currently : Patient appears to be doing well with no bleeding with the . There were no significant findings on ultrasound done yesterday. Status: Acute Qualifiers: Weeks of gestation: 10 weeks Qualified Code(s): Z3A.10 - 10 weeks gestation of (3) Subchorionic hematoma: Includes mild subchorionic hematoma. There is really nothing that we can do but observe for now. Status: Acute Qualifiers: Fetus number: single or unspecified fetus Trimester: first trimester Qualified Code(s): O41.8X10 - Other specified disorders of amniotic fluid and membranes, first trimester, not applicable or unspecified; O46.8X1 - Other antepartum hemorrhage, first trimester Attestations Medical Necessity Statement*: This patient has a significant urinary tract infection which has failed or worsened with 1 day of treatment as an outpatient with oral antibiotics. As she has increased fever and increased pain it is appropriate to place her in the hospital with intravenous antibiotics. My hope is that this will be a less than 2 midnight hospital stay and we can go home tomorrow if she is feeling better. We will reevaluate tomorrow afternoon and make a decision on discharge at that time. 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
[2020-01-27 18:18] LABS: Magnesium 1.8 mg/dL (1.7-2.2)
[2020-01-27] MEDS: HYDROcodone-acetaminophen 7.5-325 mg Tablet 1 TAB PO (19:57)
[2020-01-27] MEDS: sodium chloride 0.9% 1,000 ML 150 ML IV (19:57)
[2020-01-27] MEDS: morphine 4 mg/mL SDV 1 mL IVP (23:45)
[2020-01-28] MEDS: sodium chloride 0.9% 1,000 ML 150 ML IV ×2 (03:26→10:01)
[2020-01-28 04:00] VITALS: BP 101/70; PULSE 97; RESP 18; TEMP 37.4; O2SAT 97
[2020-01-28] MEDS: HYDROcodone-acetaminophen 7.5-325 mg Tablet 1 TAB PO ×3 (05:13→21:09)
[2020-01-28] MEDS: cefTRIAXone 1,000 MG in sodium chloride 0.9% (plus) 50 ML 100 MG IV ×3 (05:26→17:42)
[2020-01-28 05:56] LABS: Basophils % 0.1 %; Eosinophils % 0.1 %; Hematocrit 29.6 % (37.0-47.0); Hemoglobin 9.4 g/dL (11.5-15.3); Lymphocytes # 1.1 10^3/uL (1.5-6.5); Lymphocytes % 12.7 %; Mean Corpuscular HGB Conc 31.8 g/dL (30.0-36.0); Mean Corpuscular Hemoglobin 26.6 pg (28.0-34.0); Mean Corpuscular Volume 83.9 fL (81-99); Mean Platelet Volume 12.8 fL (7.4-10.4); Monocytes # 0.7 10^3/uL (0.2-0.9); Monocytes % 8.6 %; Neutrophils # 6.63 10^3/uL (1.8-8.0); Neutrophils % 78.1 %; Nucleated Red Blood Cells % 0 %; Platelet Count 124 10^3/cmm (130-400); Red Blood Count 3.53 10^6/uL (4.1-5.3); Red Cell Distribution Width 15.9 % (12.1-15.1); White Blood Count 8.5 10^3/uL (4.5-13.0)
[2020-01-28 06:33] LABS: Anion Gap 13.6 (5-19); Blood Urea Nitrogen 3 mg/dL (6-20); Calcium 8.6 mg/dL (8.5-10.5); Carbon Dioxide 18 mmol/L (22-29); Chloride 101 mmol/L (98-107); Glomerular Filtration Rate 158.9 mL/min (90-130); Glucose 89 mg/dL (65-115); Osmolality Calculated 264 mOsm/kg (285-295); Potassium 3.6 mmol/L (3.5-5.1); Sodium 129 mmol/L (136-145)
[2020-01-28 08:00] VITALS: BP 134/89; PULSE 86; RESP 18; TEMP 36.8
--- NOTE | 2020-01-28 10:05 | PC.CHAP ---
Pastoral Care Encounter/Spiritual Assessment Type of Contact [] Declined operations executive visit [] Patient/Family/Request visit [] Outpatient visit [] Follow-up visit [] Physician referral [] Code/Alert [] Routine visit [] Staff referral [] Actively dying [] Patient sleeping [] Family support [] [] Out of room [] Palliative care [] [] Receiving care in room [] Pre-surgical visit [] Trauma [] Long length of stay [] ICU visit [] Other: Relational/Emotional Strength [] Patient feels connected with others/family/visitors/staff [] Distress [] Loneliness/isolation [] Abandonment Spirituality of Patient [x] Person of Sophie [] Attends Mu-Ism of their Sophie [x] Believes in Prayer [] Reads Bible or Scientology materials [] There are Spiritual issues to be addressed Research And Development Technician Interventions x] Prayer [x] Active listening [x] Non-anxious presence [x] Spiritual/emotional support [] Crisis/trauma care [] Spiritual counseling [] Bereavement support [] Provided bereavement packet [] Provided Bible/devotional materials [] Provided toy/stuffed animal, coloring book to patient or family member [] Provided Communion [] Anointing/[place] [] Salvation [x] Completed spiritual assessment [] Other: Impact on Illness or Injury [] Angry [] Fearful [] Anxious [] Often cries [] Exhaustion [] Unable to work [] Unable to attend scientology [] Unable to walk/stand [] Unable to read [] Unable to drive [] Unable to eat/drink [] Unable to sleep [] Unable to be with family [] Patient intubated [] Other: Summary chaplains prayed with Patient. Time spent with patient 7minutes.
[2020-01-28 12:00] VITALS: BP 109/71; PULSE 86; RESP 18; TEMP 36.9
--- NOTE | 2020-01-28 13:32 | P.PN_ITS ---
Subjective Subjective: Interval history: Patient continues to have back pain bilaterally. She has not been ambulating or doing much activity because of the pain. She does occasionally take some hydrocodone for this. She continues to have some nausea but no emesis. It is not severe. She ran a low-grade fever at most overnight with a temperature max of 99.6. She denies significant dysuria a lthough she has frequency of urination after IV fluids overnight and she is drinking well. Vitals/I&O/Wt Last Vital Signs Temp 98.5 F 01/28/20 12:00 Pulse 86 01/28/20 12:00 Resp 18 01/28/20 12:00 BP 109/71 01/28/20 12:00 Pulse Ox 97 01/28/20 04:00 01/27/20 01/28/20 01/28/20 22:59 06:59 14:59 Intake Total 480 / 480 1000 / 1480 963.5 / 963.5 Output Total 700 / 700 Balance -220 / -220 1000 / 780 963.5 / 963.5 Weight last 48 hrs Weight 78.925 kg Physical Exam 2 Const: COMMON NORMALS: no acute distress, average body habitus and healthy appearing GENERAL APPEARANCE: cooperative HENMT: COMMON NORMALS: moist oral mucous membranes Resp: COMMON NORMALS: normal respiratory effort, No retractions, No use of accessory muscles and clear to auscultation bilaterally AUSCULTATION: clear to auscultation bilaterally Cardio: COMMON NORMALS: regular rate, regular rhythm and No murmurs present (Cardio) RATE: regular rate RHYTHM: regular rhythm GI: COMMON NORMALS: Normal to inspection, nondistended, normoactive bowel sounds present and Soft to palpation; negative for non-tender PALPATION: Yes Soft to palpation and Yes Tenderness to palpation present (GI) (Bilateral CVA tenderness which is mild and some suprapubic tenderness which is also mild. No guarding or rebound tenderness noted.) Extremity: COMMON NORMALS: normal to inspection, full ROM and no pedal edema Neuro: COMMON NORMALS: moves all extremities, no focal motor deficits and no sensory deficits noted Psych: COMMON NORMALS: mental status grossly normal, Normal thought process present, cooperative, normal affect and speech normal SPEECH: Yes normal speech THOUGHT PROCESS: Normal thought process present Data : 01/28/20 05:10 01/28/20 05:10 Micro: Microbiology 01/27/20 17:21 Blood Culture - Preliminary Blood SPECIMEN COLLECTED 01/27/20 17:17 Blood Culture - Preliminary Blood SPECIMEN COLLECTED A&P Assessment and plan (1) Pyelonephritis: Patient continues to have symptoms however she has been basically afebrile with no significant constitutional symptoms except for back pain and flank pain. She appears to be improving. Will encourage her to get up and ambulate more and will place her on routine Tylenol every 8 hours to see if that will help some of her discomfort also. Because she is having this discomfort and some nausea I believe she would benefit from 1 more midnight hospital stay with intravenous antibiotics. We will discontinue the intravenous fluid at this time. Status: Acute (2) Currently : Presently there are no signs or symptoms of problems with this at this time. Status: Acute Qualifiers: Weeks of gestation: 10 weeks Qualified Code(s): Z3A.10 - 10 weeks gestation of Attestations Medical Necessity Statement*: This patient has enough symptoms and problems secondary to her pyelonephritis with a history of significant pyelonephritis in the recent past that I believe she requires 1 more midnight hospital stay with intravenous antibiotics. My hope and plan is for her to be able to go home tomorrow. 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
[2020-01-28] MEDS: acetaminophen 325 mg Tablet 650 MG PO ×2 (13:54→21:08)
[2020-01-28 16:00] VITALS: BP 134/83; PULSE 89; RESP 18; TEMP 36.7
--- NOTE | 2020-01-28 18:26 | PC.NURSE ---
Iv started in left upper arm this AM. Pt fluids were discontinued and Tylenol added. Pt has had good output. Pt has been having some back pain.
[2020-01-28 19:54] VITALS: BP 113/74; PULSE 92; RESP 17; TEMP 36.9; O2SAT 99
[2020-01-29] VITALS: BP 104/70; PULSE 84; RESP 14; TEMP 36.6; O2SAT 98
[2020-01-29 03:36] VITALS: BP 108/72; PULSE 77; RESP 14; TEMP 36.7; O2SAT 99
[2020-01-29] MEDS: cefTRIAXone 1,000 MG in sodium chloride 0.9% (plus) 50 ML 100 MG IV (05:28)
[2020-01-29] MEDS: acetaminophen 325 mg Tablet 650 MG PO (05:29)
[2020-01-29] MEDS: HYDROcodone-acetaminophen 7.5-325 mg Tablet 1 TAB PO (05:32)
[2020-01-29 07:39] VITALS: BP 103/67; PULSE 80; RESP 18; TEMP 36.7; O2SAT 97
--- NOTE | 2020-01-29 07:41 | PM.DCS ---
Discharge Providers Date of Admission: 01/28/20 13:55 Date of Discharge: January 29, 2020 Attending Provider at Admission: Kwaku Barber MD Attending Provider at Discharge: Kwaku Barber MD Primary Care Provider: Kwaku Barber MD Diagnoses at Discharge Discharge Diagnosis (1) Pyelonephritis: Status: Acute Problem details: Patient is improved. She does still have some pain but she does continue to be afebrile. Initial cultures done in the office demonstrated E. coli which was pansensitive. It should be sensitive to the cefuroxime that she was given as an outpatient. (2) Currently : Status: Acute Problem details: Patient is currently with a mild subchorionic bleed. Presently not much to do about that except avoid strenuous activity at this time. Qualifiers: Weeks of gestation: 10 weeks Qualified Code(s): Z3A.10 - 10 weeks gestation of Reason for Visit Reason for Visit: Abdominal Pain Hospital Course Hospital Course: Patient was admitted with intravenous antibiotics. Her pain has decreased slowly daily. She did get up and ambulate some yesterday. She is not as nauseated and is afebrile and is felt to be stable for discharge home with continuing the oral cefuroxime that she has at home. Discharge Summary: Patient has been followed with intravenous antibiotics and fluids. She is ambulating well and has been afebrile. Although she is a little anxious and continue to have back pain she is felt to be stable for discharge. Physical Exam Const: COMMON NORMALS: no acute distress, no limitations and healthy appearing Resp: COMMON NORMALS: normal respiratory effort, No retractions, No use of accessory muscles and clear to auscultation bilaterally AUSCULTATION: clear to auscultation bilaterally Cardio: COMMON NORMALS: regular rate, regular rhythm and No murmurs present (Cardio) RATE: regular rate RHYTHM: regular rhythm GI: COMMON NORMALS: Normal to inspection, nondistended, normoactive bowel sounds present and Soft to palpation; negative for non-tender (Mild suprapubic and bilateral flank tenderness. Appears improved compared to yesterday.) PALPATION: Yes Soft to palpation Extremity: COMMON NORMALS: normal to inspection, full ROM and no pedal edema Neuro: COMMON NORMALS: CN's II-XII intact bilaterally, moves all extremities, no focal motor deficits and no sensory deficits noted Psych: COMMON NORMALS: mental status grossly normal Discharge Data Data Completed and Pending: Pending at discharge Category Date Time Status Blood Culture Sta t Lab 01/27/20 17:21 Results Urine Culture Sta t Lab 01/27/20 15:51 Results Vitals: Last Vital Signs Temp 98.1 F 01/29/20 03:36 Pulse 77 01/29/20 03:36 Resp 14 01/29/20 03:36 BP 108/72 01/29/20 03:36 Pulse Ox 99 01/29/20 03:36 Discharge Plan Discharge Patient Disposition: Home Condition: Stable Prescriptions: Continued hydrocodone-acetaminophen [[place]] 7.5-325 mg tablet 1 tab PO TID PRN (Reason: pain) Qty: 10 RF: 0 Discharge Orders: Discharge Order (Routine); Ordered 01/29/20 Ordered By: Kwaku Barber Referrals: Kwaku Barber MD [Primary Care Provider] - Discharge Diet: Advance as tolerated Discharge Activity: Increase activity as tolerated Activity Restrictions/Additional Instructions: May follow-up as needed also. Discharge Attestations Time Spent in Discharge Care*: greater than 30 min Specific Discharge Activities: Specific discharge activities: educating patient, documenting/other paperwork and evaluating patient/reviewing data Status at Discharge: Cognitive status at discharge: cognitively intact, Behavioral status at discharge: cooperative, Quality Metrics Clinical Quality Measures During this hospital stay, did patient experience: None Coding Level of Care Code Acute Informatics Consultant for [facility] Fwd Diagnoses Pyelonephritis N12 Currently Z3A.10 Weeks of gestation: 10 weeks
--- NOTE | 2020-01-29 08:49 | PC.NURSE ---
Discharge paperwork completed and education provided. All questions answered. VSS; no s/s distress. Pt denies any needs or concerns at this time. IV removed without difficulty. Pt to be transported to hospital entrance via wheelchair by HOSPICE VOLUNTEER COORDINATOR.
== END 2020-01-29 09:00 | disposition home or self-care (01) | DRG 833 ==
LOC: ER 17:07 → MEDSURG 01-29 03:17
PROVIDERS: Emergency Medicine; Nurse Practitioner Family; Admitting Provider Family Medicine; PCP Family Medicine; Visit Provider Family Medicine
DX: O23.01 Infections of kidney in pregnancy, first trimester (principal); Z3A.10 10 weeks gestation of pregnancy; O46.8X1 Other antepartum hemorrhage, first trimester
CPT/HCPCS: 12345; 36415; 80048; 80053; 81001; 83605; 83690; 83735; 84703; 85025; 87040; 87086; 96375; 99283; G0378; J0696; J2270; J2405; J7030

== ENCOUNTER 2020-04-19 16:18 | Emergency (ER) | payer MEDICAID, SELFPAY ==
[2020-04-19 16:26] VITALS: BP 137/90; PULSE 93; RESP 18; TEMP 36.7; O2SAT 100; BMI 25.8
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
[2020-04-19] MEDS: ondansetron 4 MG Tablet PO (19:33)
[2020-04-19] MEDS: HYDROcodone-acetaminophen 7.5-325 mg Tablet 1 TAB PO (19:33)
[2020-04-19 19:34] VITALS: PULSE 75; RESP 18; O2SAT 99
[2020-04-19 20:22] VITALS: BP 113/71; PULSE 84; RESP 17; O2SAT 100
[2020-04-19 21:27] VITALS: BP 136/74; PULSE 86; RESP 16; O2SAT 98
== END 2020-04-19 21:29 | disposition home or self-care (01) ==
PROVIDERS: Emergency Provider Nurse Practitioner Family; PCP Family Medicine
DX: O9A.212 Injury, poisoning and certain other consequences of external causes complicating pregnancy, second trimester (principal); S16.1XXA Strain of muscle, fascia and tendon at neck level, initial encounter; S80.02XA Contusion of left knee, initial encounter; S01.412A Laceration without foreign body of left cheek and temporomandibular area, initial encounter; V59.60XA Unspecified occupant of pick-up truck or van injured in collision with unspecified motor vehicles in traffic accident, initial encounter; Z3A.22 22 weeks gestation of pregnancy
CPT/HCPCS: 12011; 12345; 70140; 72040; 73030; 73562; 76805; 76815; 99281; 99283; Q0162

== ENCOUNTER 2020-05-29 13:25 | Emergency (ER) | payer MEDICAID, SELFPAY ==
[2020-05-29 13:33] VITALS: BP 135/103; PULSE 111; RESP 16; TEMP 36.2; O2SAT 100; BMI 25.8
--- NOTE | 2020-05-29 13:40 | W.ED.EXTPRO ---
HPI - Extremity Problem General: Chief complaint: Extremity Problem,Nontraumatic Stated complaint: L LEG SWOLLEN AND PAINFUL/HIP TO ANKLE Time Seen by Provider: 05/29/20 13:39 History of Present Illness: HPI Narrative: 19-year-old female presents emergency room with complaint of left leg pain. She is currently 23 weeks she is SAB 1. She usually sees Dr. Barber for her OB care. He denies any vaginal bleeding she has a usual baseline leukorrhea. She denies any dysuria urgency or frequency no vomiting or diarrhea. Denies fever sweats or chills. MD Complaint: extremity pain and extremity swelling Onset (ago): day(s) Pain Consistency: constant Location: left Quality: aching Relieving factors: nothing Exacerbating factors: nothing Associated symptoms: Deny arthralgias, chest pain, fever(s), myalgias, rash or short of breath Review of Systems Const: Denies: fever(s) ENMT: Denies: throat pain, ear or mastoid pain, nasal discharge or nasal congestion Card: Denies: chest pain Resp: Denies: dyspnea, productive cough or non-productive cough GI: Denies: abdominal pain, nausea, vomiting, hematemesis, coffee ground emesis, diarrhea, constipation, bloating, hematochezia or melena : Denies: flank pain, difficulty voiding, dysuria, urinary frequency or urinary urgency Skin/Breast: Denies: rash PFSH ED PFSH: Social History Smoking and tobacco status: never smoked Alcohol intake: never Number of children: 1 Female Reproductive History: Date of last menstrual period: 11/22/19 Physical Exam Const: COMMON NORMALS: no acute distress GENERAL APPEARANCE: cooperative and comfortable ORIENTATION/CONSCIOUSNESS: Yes awake, Yes oriented to person, Yes oriented to place and Yes oriented to time HENMT: COMMON NORMALS: normocephalic, atraumatic and hearing grossly normal bilaterally HEAD & SCALP: normocephalic and atraumatic Neck/C-Spine: COMMON NORMALS: no JVD Resp: COMMON NORMALS: normal respiratory effort, No retractions, No use of accessory muscles and clear to auscultation bilaterally AUSCULTATION: clear to auscultation bilaterally Cardio: COMMON NORMALS: no JVD, regular rate, regular rhythm and No murmurs present (Cardio) RATE: regular rate RHYTHM: regular rhythm GI: COMMON NORMALS: Soft to palpation and No hepatosplenomegaly present AUSCULTATION: Yes normoactive bowel sounds PALPATION: Yes Soft to palpation, No Tenderness to palpation present (GI), No Guarding due to palpation present (GI) and Yes No hepatosplenomegaly present Extremity: COMMON NORMALS: normal to inspection, capillary refill normal, no clubbing, cyanosis or edema, no calf tenderness and no pedal edema Neuro: SENSORIUM/ORIENTATION: Yes oriented to person, Yes oriented to place and Yes oriented to time Skin: COMMON NORMALS: no rashes or lesions noted GENERAL SKIN EXAM: no rashes or lesions noted Course Vital Signs: Vital signs: Vital Signs Temperature 97.1 F L 05/29/20 13:33 Pulse Rate 97 05/29/20 16:28 Respiratory Rate 18 05/29/20 16:28 Blood Pressure 115/80 05/29/20 16:28 Pulse Oximetry 100 05/29/20 16:28 MDM - Extremity (Nontraumatic) MDM Narrative: Medical decision making narrative: DVT left leg. Discussed with Dr. Barber. We will start her on Lovenox. Nursing demonstrated how to do the injections if she has difficulty Dr. Barber advised to have her go to OB and they can help her with that. She has any chest pain or shortness of breath return to emergency room follow-up with Dr. Barber tomorrow. Lab Data: Labs: Lab Results 05/29/20 Range/Units 14:55 Urine Color Yellow (Yellow) Urine Appearance Clear (CLEAR) Urine pH 6 (5-7) Ur Specific Gravit y 1.020 (1.005-1.030) Urine Protein Neg (Negative) Urine Glucose (UA) Norm (Normal) Urine Ketones Negative (Negative) Urine Blood Neg (Negative) Urine Nitrate Negative (Negative) Urine Bilirubin Neg (Negative) Urine Urobilinogen 1 H (Negative) mg/dL Ur Leukocyte Kamila ase Negative (Negative) Discharge Plan Discharge Patient Disposition: Home Clinical Impression: Deep vein thrombosis of lower extremity, Currently Condition: Stable Prescriptions: New Lovenox 80 mg/0.8 mL syringe 80 mg SUBCUT Q12H Qty: 48 RF: 1 No Action 1 tab PO DAILY@1000 RF: 0 Discharge Orders: Discharge ED (Routine); Ordered 05/29/20 Ordered By: Cory Cash Referrals: Kwaku Barber MD [Primary Care Provider] - Discharge Diet: Usual diet Discharge Activity: Increase activity as tolerated Patient Instructions: Opioid Safety Activity Restrictions/Additional Instructions: Use Lovenox every 12 hours as instructed. If you are uncomfortable giving the shot go to the OB department and they will assist you. Call Dr. Barber's office for a follow-up appointment as soon as you are able. Coding Level of Care Code ED Patient Relations Specialist for Chg Fwd Exam Comprehensive
--- NOTE | 2020-05-29 13:49 | USCV_ITS ---
Hajasummer Age: 19 Gender: F : 2000 Exam Date: 05/29/2020 14:22 Ordering Phys: Cory Cash DO Technologist: Sloan Gonsales [place] [facility] [place] Indication: leg pain and swelling HISTORY: patient is . PROCEDURES: Venous duplex imaging was performed in only the left lower extremity. The following venous structures were evaluated: common femoral vein, profunda vein, proximal portion of the greater saphenous vein, superficial femoral vein, and the popliteal vein. In addition, the posterior tibial and peroneal trunk were evaluated. Serial compression, augmentation maneuvers, and spectral Doppler flow evaluation were performed. FINDINGS: DVT within the left lower extremity extending from the GSV and common femoral in the groin through the peroneal veins. Extensive acute DVT with occlusion. All other veins appear free of thrombus at this time. CONCLUSIONS Acute left lower extremity deep venous thrombosis. Dr. Sara Blackwood DO (Electronically Signed) Final Date: 29 May 2020 14:39 S
[2020-05-29 15:04] VITALS: PULSE 93
[2020-05-29 15:08] LABS: Add Urine Microscopic? NO
[2020-05-29 15:14] LABS: Bilirubin Urine Neg (Negative); Blood Urine Neg (Negative); Glucose Urine UA Norm (Normal); Ketones Urine Negative (Negative); Leukocyte Esterase Urine Negative (Negative); Nitrate Urine Negative (Negative); Protein Urine Neg (Negative); Urine Appearance Clear (CLEAR); Urine Color Yellow (Yellow); Urobilinogen Urine 1 mg/dL (Negative); pH Urine 6 (5-7)
[2020-05-29] MEDS: enoxaparin 80 mg/0.8 mL Syringe SUBCUT (16:15)
--- NOTE | 2020-05-29 16:27 | PC.NURSE ---
patient was educated on how to administer lovenox injection patient tolerated well
[2020-05-29 16:28] VITALS: BP 115/80; PULSE 97; RESP 18; O2SAT 100
== END 2020-05-29 16:29 | disposition home or self-care (01) ==
PROVIDERS: Emergency Provider Family Medicine; PCP Family Medicine
DX: O22.32 Deep phlebothrombosis in pregnancy, second trimester (principal); I82.402 Acute embolism and thrombosis of unspecified deep veins of left lower extremity; Z3A.23 23 weeks gestation of pregnancy
CPT/HCPCS: 81003; 93971; 96372; 99283; J1650

== ENCOUNTER 2020-05-31 23:39 | Emergency (ER) | payer MEDICAID, SELFPAY ==
[2020-05-31 23:43] VITALS: BP 127/84; PULSE 95; RESP 18; TEMP 36.7; O2SAT 100; BMI 25.8
--- NOTE | 2020-06-01 00:06 | W.ED.EXTPRO ---
HPI - Extremity Problem General: Chief complaint: Extremity Problem,Nontraumatic Stated complaint: pain and swelling in leg Time Seen by Provider: 05/31/20 23:55 History of Present Illness: HPI Narrative: Patient planes about worsening pain in her left lower extremity since she has had a DVT diagnosed couple days ago Complaint: extremity pain Onset (ago): day(s) Pain Consistency: constant Location: left and lower extremity Quality: aching Radiation: proximal Relieving factors: nothing Exacerbating factors: range of motion Associated symptoms: Reports no associated symptoms; Deny chest pain Review of Systems Narrative: Patient states that her left leg is hurting worse now does not have any pain medications take states hurts on the outside more in the hip joint denies any worsening swelling extremity continues still felt warm patient states Card: Denies: chest pain Resp: Denies: dyspnea Musc: Reports: extremity pain (Left leg hurts from the groin down consistent with previous DVT ) and other (Leg is hurting more on the outside than the inside now. Hurts with range o) Neuro: Denies: headache(s) or numbness in extremities PFS ED PFSH: Social History Smoking and tobacco status: never smoked Alcohol intake: never Number of children: 1 Female Reproductive History: Date of last menstrual period: 11/22/19 Physical Exam Const: COMMON NORMALS: no acute distress Extremity: NARRATIVE EXTREMITY EXAM: Left lower extremity with swelling as compared to right lower extremity. Pulses intact. Extremity with normal warmth in comparison to the right lower extremity no tenderness with palpation Psych: COMMON NORMALS: mental status grossly normal Course Vital Signs: Vital signs: Vital Signs Temperature 98.1 F 05/31/20 23:43 Pulse Rate 95 05/31/20 23:43 Respiratory Rate 18 05/31/20 23:43 Blood Pressure 127/84 05/31/20 23:43 Pulse Oximetry 100 05/31/20 23:43 MDM - Extremity (Nontraumatic) MDM Narrative: Medical decision making narrative: Discussed case with Dr. Stewart we agreed on plan of care. Patient is follow-up with Dr. Barber on Wednesday as scheduled. With worsening of symptoms or increased welling patient is return here or return to [facility]. Discharge Plan Discharge Patient Disposition: Home Clinical Impression: Deep vein thrombosis of lower extremity Qualifiers: Affected thrombotic vein of extremity: unspecified vein of extremity Chronicity: acute Laterality: left Qualified Code(s): I82.402 - Acute embolism and thrombosis of unspecified deep veins of left lower extremity Condition: Stable Prescriptions: New hydrocodone-acetaminophen 5-325 mg tablet 1 tab PO TID PRN (Reason: pain) Qty: 20 RF: 0 No Action 1 tab PO DAILY@1000 RF: 0 Lovenox 80 mg/0.8 mL syringe 80 mg SUBCUT Q12H Qty: 48 RF: 1 Discharge Orders: Discharge ED (Routine); Ordered 06/01/20 Ordered By: Humberto Zhong Referrals: Kwaku Barber MD [Primary Care Provider] - Discharge Diet: Usual diet Discharge Activity: Resume usual activity Patient Instructions: Opioid Safety Activity Restrictions/Additional Instructions: Follow-up with medical provider as directed. Take medications as prescribed. Return to the ER or your medical provider if condition worsens. Please read and understand discharge instructions. If any questions ask please. Follow-up with Dr. Barber as scheduled. Coding Level of Care Code ED Rigging Helper for Romg Fwd Exam Expanded Problem Focused
[2020-06-01] MEDS: HYDROcodone-acetaminophen 7.5-325 mg Tablet 1 TAB PO (00:23)
[2020-06-01 00:34] VITALS: BP 124/73; PULSE 86; RESP 16; TEMP 36.7; O2SAT 100
== END 2020-06-01 00:34 | disposition home or self-care (01) ==
PROVIDERS: Emergency Provider Nurse Practitioner Family; PCP Family Medicine
DX: I82.402 Acute embolism and thrombosis of unspecified deep veins of left lower extremity (principal)
CPT/HCPCS: 99282

== ENCOUNTER 2020-08-25 10:31 | Inpatient (IN) | payer MEDICAID, SELFPAY ==
[2020-08-25] VITALS (31 sets, daily range): BP systolic 108–138; BP diastolic 55–97; PULSE 71–111; RESP 16–20; TEMP 36.2–36.8; O2SAT 99; BMI 28.3
[2020-08-25] MEDS: lactated ringers 1,000 ML 999 ML IV (10:40)
[2020-08-25 10:49] LABS: Basophils % 0.2 %; Eosinophils % 0.1 %; Hematocrit 34.9 % (37.0-47.0); Hemoglobin 10.7 g/dL (11.5-15.3); Lymphocytes # 1.9 10^3/uL (1.5-6.5); Lymphocytes % 14.7 %; Mean Corpuscular HGB Conc 30.7 g/dL (30.0-36.0); Mean Corpuscular Hemoglobin 24.5 pg (28.0-34.0); Mean Corpuscular Volume 79.9 fL (81-99); Mean Platelet Volume 12.6 fL (7.4-10.4); Monocytes # 0.5 10^3/uL (0.2-0.9); Monocytes % 3.8 %; Neutrophils # 10.34 10^3/uL (1.8-8.0); Neutrophils % 80.6 %; Nucleated Red Blood Cells % 0 %; Platelet Count 178 10^3/cmm (130-400); Red Blood Count 4.37 10^6/uL (4.1-5.3); Red Cell Distribution Width 16.5 % (12.1-15.1); White Blood Count 12.8 10^3/uL (4.5-13.0)
[2020-08-25] MEDS: oxytocin 30 UNIT/500 ML BAG 600 UNIT IV (11:14)
--- NOTE | 2020-08-25 11:26 | P.PCNOB_ITS ---
Delivery Note: Date of delivery: August 25, 2020 this 19-year-old 3 now para 2 female at 40 weeks gestation had spontaneous onset of labor early this morning. She arrived [facility] OB department at 5 cm dilated. She rapidly went to complete cervical dilatation and delivered by spontaneous vaginal livery healthy, viable female infant weighing 6 pounds 15 ounces. Upon this physician's arrival the was a occiput posterior with face presentation and . We were able to move the posterior part of the head forward and she was able deliver by spontaneous vaginal delivery this healthy female infant. Apgars were 8 and 9 at 1 and 5 minutes respectively. Upon delivery of the head the remainder the infant was delivered quickly and suctioned. The infant was then placed on the mother's abdomen where after approximately 1 minute the infant's father cut the cord. The cord had 3 blood v essels. The was born at 1110 with the placenta passing spontaneously at 1113. There were no lacerations and no episiotomy with no repair needed. No anesthesia was used secondary to her rapid progress. Estimated blood loss approximate 143 mL. Pre-Delivery Course: This patient was followed throughout her course by this physician. There were no major problems or concerns. She did, however have deep vein thrombosis for which she was on Lovenox through her . Maternal blood type was B- with antibody screen negative. Hepatitis B, hepatitis C, RPR and HIV were negative. Rubella was non-immune and group B strep was negative. Covid testing was also negative. Delivery: Spontaneous vaginal Post-Delivery Status: Patient is doing well at this time and will be followed for routine postdelivery care. A&P Assessment and plan (1) Normal spontaneous vaginal delivery: Patient did well and will be followed for routine postdelivery care. She will be continued on Lovenox for her deep vein thrombosis as her risk is not low enough yet at this time. She has no significant active bleeding at this time. Status: Acute Coding Level of Care Code Acute Diagnostic Tech for Chg Fwd Diagnoses Normal spontaneous vaginal delivery O80
[2020-08-25] MEDS: HYDROcodone-acetaminophen 5-325 mg Tablet PO (12:04)
[2020-08-25] MEDS: oxytocin 30 UNIT/500 ML BAG 999 UNIT IV (12:16)
[2020-08-25] MEDS: benzocaine-menthol 78 gm Canister 1 SPRAY TOPICAL (14:36)
[2020-08-25] MEDS: ibuprofen 800 mg tablet PO ×2 (14:36→20:55)
--- NOTE | 2020-08-25 14:49 | PC.NURSE ---
PT UP TO BATHROOM, TOLERATED WELL, INSTRUCTED ON PERICARE AND DERMAPLAST SPRAY. PT UP IN ROOM AND B/P ELEVATED, WILL RECHECK WHEN SHE LAYS BACK DOWN. SHE IS WANTING TO DRESS BABY UP.
[2020-08-25] MEDS: docusate sodium 100 mg Capsule PO (18:00)
[2020-08-26] VITALS (7 sets, daily range): BP systolic 103–123; BP diastolic 59–76; PULSE 67–144; RESP 18; TEMP 36.6–37.2
[2020-08-26 00:04] LABS: Hematocrit 31.2 % (37.0-47.0); Hemoglobin 9.5 g/dL (11.5-15.3); Mean Corpuscular HGB Conc 30.4 g/dL (30.0-36.0); Mean Corpuscular Hemoglobin 24.7 pg (28.0-34.0); Mean Corpuscular Volume 81.3 fL (81-99); Mean Platelet Volume 12.4 fL (7.4-10.4); Platelet Count 177 10^3/cmm (130-400); Red Blood Count 3.84 10^6/uL (4.1-5.3); Red Cell Distribution Width 16.5 % (12.1-15.1); White Blood Count 14.5 10^3/uL (4.5-13.0)
[2020-08-26] MEDS: HYDROcodone-acetaminophen 5-325 mg Tablet PO (00:39)
--- NOTE | 2020-08-26 07:42 | PM.OBGYDC ---
Discharge Providers CONTINUOUS IMPROVEMENT CONSULTANT Date of Admission: 08/25/20 10:31 Date of Discharge: 08/26/20 Attending Provider at Admission: Kwaku Barber MD Attending Provider at Discharge: Kwaku Barber MD Primary Care Provider: Kwaku Barber MD Diagnoses at Discharge Discharge Diagnosis (1) Normal spontaneous vaginal delivery: Status: Acute (2) Deep vein thrombosis (DVT) affecting : Status: Acute Reason for Visit Reason for Visit: Contractions Hospital Course Hospital Course This patient was admitted yesterday morning with significant contractions. She rapidly dilated to complete cervical dilatation and this physician was called and we delivered by spontaneous vaginal delivery healthy, viable female infant. She had some initial uterine atony but that cleared quickly with the second bag of Pitocin. She has had no significant bleeding or problems. The baby is feeding well and mom was felt to be stable for discharge. However, with her diagnosis of deep vein thrombosis beginning in May she will be discharged home on Eliquis as she is not breast-feeding. Physical Exam Const: COMMON NORMALS: no acute distress, average body habitus and healthy appearing GENERAL APPEARANCE: cooperative HENMT: COMMON NORMALS: moist oral mucous membranes Resp: COMMON NORMALS: normal respiratory effort, No retractions, No use of accessory muscles and clear to auscultation bilaterally AUSCULTATION: clear to auscultation bilaterally Cardio: COMMON NORMALS: regular rate, regular rhythm and No murmurs present (Cardio) RATE: regular rate RHYTHM: regular rhythm GI: COMMON NORMALS: Normal to inspection, nondistended, normoactive bowel sounds present, Soft to palpation and non-tender (Fundus is firm and well below the umbilicus.) PALPATION: Yes Soft to palpation Extremity: COMMON NORMALS: normal to inspection, full ROM, no calf tenderness and no pedal edema Neuro: COMMON NORMALS: moves all extremities, no focal motor deficits and no sensory deficits noted Psych: COMMON NORMALS: mental status grossly normal, cooperative and normal affect Skin: COMMON NORMALS: no rashes or lesions noted GENERAL SKIN EXAM: no rashes or lesions noted Discharge Data Data Completed and Pending: Pending at discharge Category Date Time Status Complete Crossmat ch Routine Lab 08/25/20 10:59 Results Rho D Immune Glob ulin Routine Lab 08/25/20 10:59 Results Type and Screen R outine Lab 08/25/20 10:59 Results Labs from last 24 hours 08/25/20 08/25/20 08/25/20 23:50 23:50 10:59 WBC 14.5 H RBC 3.84 L Hgb 9.5 L Hct 31.2 L MCV 81.3 MCH 24.7 L MCHC 30.4 RDW 16.5 H Plt Count 177 MPV 12.4 H Neut % (Auto) Lymph % (Auto) [place] % (Auto) Eos % (Auto) Baso % (Auto) Neut # (Auto) Lymph # (Auto) [place] # (Auto) Eos # (Auto) Baso # (Auto) Nucleated RBC % (a uto) Nucleated RBCs # Blood Type B Negative Rho(D) Type Negative / 0 Antibody Screen Negative Screen Negative 08/25/20 10:35 WBC 12.8 RBC 4.37 Hgb 10.7 L Hct 34.9 L MCV 79.9 L MCH 24.5 L MCHC 30.7 RDW 16.5 H Plt Count 178 MPV 12.6 H Neut % (Auto) 80.6 Lymph % (Auto) 14.7 [place] % (Auto) 3.8 Eos % (Auto) 0.1 Baso % (Auto) 0.2 Neut # (Auto) 10.34 H Lymph # (Auto) 1.9 [place] # (Auto) 0.5 Eos # (Auto) 0.0 Baso # (Auto) 0.0 Nucleated RBC % (a uto) 0 Nucleated RBCs # 0.0 Blood Type Rho(D) Type Antibody Screen Screen Vitals: Last Vital Signs Temp 97.7 F 08/25/20 18:00 Pulse 86 08/26/20 07:21 Resp 18 08/25/20 18:00 BP 121/71 08/26/20 07:21 Pulse Ox 99 08/25/20 10:40 Discharge Plan Discharge Patient Disposition: Home Condition: Stable Prescriptions: New ibuprofen 800 mg Tablet 800 mg PO TID Qty: 90 RF: 2 docusate sodium [DOK] 100 mg Capsule 100 mg PO BID Qty: 60 RF: 2 -U 106.5-1 mg Capsule 1 cap PO DAILY Qty: 90 RF: 2 Eliquis 5 mg Tablet 5 mg PO BID@0900,2100 Qty: 60 RF: 3 Discontinued enoxaparin [Lovenox] 80 mg/0.8 mL syringe 80 mg SUBCUT Q12H Qty: 48 RF: 1 Discharge Orders: Discharge Order (Routine); Ordered 08/26/20 Ordered By: Kwaku Barber Referrals: Kwaku Barber MD [Primary Care Provider] - 6 Weeks Discharge Diet: Usual diet Discharge Activity: Resume usual activity Patient Instructions: Opioid Safety Discharge Attestations CONTINUOUS IMPROVEMENT CONSULTANT Time Spent in Discharge Care*: less than 30 min Specific Discharge Activities: Specific discharge activities: educating patient, documenting/other paperwork and evaluating patient/reviewing data Status at Discharge: Cognitive status at discharge: cognitively intact, Behavioral status at discharge: cooperative, Coding Level of Care Code Acute Surgical Training Specialist for Chg Fwd Diagnoses Normal spontaneous vaginal delivery O80 Deep vein thrombosis (DVT) affecting O22.30
[2020-08-26] MEDS: prenatal vitamin Capsule 1 CAP PO (08:13)
[2020-08-26] MEDS: measles,mumps,rubella pf Vial (w/diluent) 0.5 ML SUBCUT (08:13)
[2020-08-26] MEDS: ibuprofen 800 mg tablet PO (08:13)
[2020-08-26] MEDS: docusate sodium 100 mg Capsule PO (08:13)
[2020-08-26] MEDS: apixaban 5 mg Tablet PO (10:26)
== END 2020-08-26 12:50 | disposition home or self-care (01) | DRG 806 ==
LOC: OPOB 10:33 → OBGYN 10:33
PROVIDERS: Admitting Provider Family Medicine; PCP Family Medicine; Visit Provider Family Medicine
DX: O87.1 Deep phlebothrombosis in the puerperium (principal); I82.409 Acute embolism and thrombosis of unspecified deep veins of unspecified lower extremity; Z37.0 Single live birth; Z3A.40 40 weeks gestation of pregnancy
CPT/HCPCS: 36415; 59025; 59409; 85025; 85027; 85460; 86850; 86900; 90384; 90707; 96372; 99211

== ENCOUNTER 2022-07-09 20:19 | Emergency (ER) | payer MEDICAID, SELFPAY ==
[2022-07-09 20:57] VITALS: BP 143/89; PULSE 111; RESP 18; TEMP 36.6; O2SAT 99; BMI 22.5
--- NOTE | 2022-07-09 21:16 | CTR_ITS ---
PROCEDURE INFORMATION: Exam: CT Head Without Contrast Exam date and time: 07/09/2022 10:19 PM Age: 21 years old Clinical indication: Pain; Headache; Patient HX: KELLY with dizziness and nausea TECHNIQUE: Imaging protocol: Computed tomography of the head without contrast. Radiation optimization: All CT scans at this facility use at least one of these dose optimization techniques: automated exposure control; mA and/or kV adjustment per patient size (includes targeted exams where dose is matched to clinical indication); or iterative reconstruction. REPORTING DATA: Count of CT and Cardiac NM exams in prior 12 months: This patient has received 0 known CTs and 0 known cardiac nuclear medicine studies in the 12 months prior to the current study. COMPARISON: CR XR facial bones <3V 03202 04/19/2020 6:52 PM RADIATION DOSE METRICS: Total DLP (mGy-cm): 991.21 FINDINGS: Brain: Normal. No hemorrhage or evidence of acute infarction. Unremarkable white matter. No mass effect. Cerebral ventricles: No ventriculomegaly. Paranasal sinuses: Visualized sinuses are unremarkable. No fluid levels. Mastoid air cells: Visualized mastoid air cells are well aerated. Bones/joints: Unremarkable. No acute fracture. Soft tissues: Unremarkable. CT/CT head wo con* [id number] IMPRESSION: No acute intracranial abnormality.
--- NOTE | 2022-07-09 22:33 | ED_ITS ---
HPI - Headache General: Chief Complaint: Headache Stated Complaint: N\Headache\Dizzy Time Seen by Provider: 07/09/22 21:49 Source: patient Mode of arrival: ambulatory Limitations: no limitations History of Present Illness: 21-year-old female states she has been having ongoing headaches for the last 3 months she states that they have been daily states her headaches currently 7 out of 10 denies any migraine she states it is worse with loud sounds denies any fever denies any neck pain denies any photop hobia. No vomiting no diarrhea. Associated symptoms: Deny chest pain, fever(s), nausea, rash or vomiting Review of Systems Const: Denies: fever(s), chills, body aches or change in appetite Eyes: Denies: blurry vision or eye discomfort ENMT: Denies: throat pain or dental pain Card: Denies: chest pain Resp: Denies: dyspnea GI: Denies: abdominal pain, nausea, vomiting or diarrhea : Denies: dysuria Musc: Denies: neck pain or back pain Skin/Breast: Denies: rash Neuro: Reports: headache(s) Psych: Denies: depression Vj/Lymph: Denies: easy bruising All/Imm: Denies: urticaria PFSH ED PFSH: Medical History (Updated 07/09/22 @ 23:18 by Troy Rushing MD) Deep vein thrombosis (DVT) affecting Social History Smoking and tobacco status: never smoked Alcohol intake: never Number of children: 1 Physical Exam Const: COMMON NORMALS: no acute distress, patient oriented x3 and healthy appearing HENMT: COMMON NORMALS: normocephalic and atraumatic HEAD & SCALP: normocephalic and atraumatic Eye: COMMON NORMALS: Equal, round and reactive pupils present and EOMs intact bilaterally PUPIL: Yes Equal, round and reactive pupils present Neck/C-Spine: COMMON NORMALS: full ROM and supple Chest: COMMONS NORMALS: normal inspection of the chest and normal palpation of entire chest wall Resp: COMMON NORMALS: normal respiratory effort, No retractions, No use of accessory muscles and clear to auscultation bilaterally AUSCULTATION: clear to auscultation bilaterally Cardio: COMMON NORMALS: regular rate, regular rhythm and No murmurs present (Cardio) RATE: regular rate RHYTHM: regular rhythm GI: COMMON NORMALS: Normal to inspection, nondistended, normoactive bowel sounds present, Soft to palpation, non-tender and no masses PALPATION: Yes Soft to palpation Extremity: COMMON NORMALS: normal to inspection and full ROM Neuro: COMMON NORMALS: patient oriented x3, moves all extremities and no focal motor deficits Psych: COMMON NORMALS: mental status grossly normal, Normal thought process present and cooperative THOUGHT PROCESS: Normal thought process present Skin: COMMON NORMALS: no rashes or lesions noted and no wounds GENERAL SKIN EXAM: no rashes or lesions noted Course Vital Signs: Vital signs: Vital Signs Temperature 97.9 F 07/09/22 20:57 Pulse Rate 111 H 07/09/22 20:57 Respiratory Rate 18 07/09/22 20:57 Blood Pressure 143/89 07/09/22 20:57 Pulse Oximetry 99 07/09/22 20:57 Oxygen Delivery Me thod 07/09/22 20:57 MDM - Headache Medical Decision Making Patient presents here with a headache that is been going on for months she is well-appearing here blood work head CT are normal no signs of meningitis or aneurysm she feels improved here she is to follow-up with her PCP and return if worsening she understands agrees to plan. Lab Data 07/09/22 22:46 07/09/22 22:[address] 07/09/22 21:16 IMPRESSION: No acute intracranial abnormality. Laboratory Results WBC 9.1 10^3/uL (4.0-10.0) 07/09/22 22:46 RBC 4.34 10^6/uL (4.1-5.3) 07/09/22 22:46 Hgb 12.5 g/dL (11.5-15.3) 07/09/22 22:46 Hct 38.9 % (37.0-47.0) 07/09/22 22:46 MCV 89.6 fl (81-99) 07/09/22 22:46 MCH 28.8 pg (28.0-34.0) 07/09/22 22:46 MCHC 32.1 g/dL (30.0-36.0) 07/09/22 22:46 RDW 14.4 % (12.1-15.1) 07/09/22 22:46 Plt Count 209 10^3/cmm (130-400) 07/09/22 22:46 MPV 12.0 fL (7.4-10.4) H 07/09/22 22:46 Neut % (Auto) 58.8 % 07/09/22 22:46 Lymph % (Auto) 34.9 % 07/09/22 22:46 [place] % (Auto) 5.4 % 07/09/22 22:46 Eos % (Auto) 0.4 % 07/09/22 22:46 Baso % (Auto) 0.3 % 07/09/22 22:46 Neut # (Auto) 5.35 10^3/uL (1.8-7.7) 07/09/22 22:46 Lymph # (Auto) 3.2 10^3/uL (0.8-4.8) 07/09/22 22:46 [place] # (Auto) 0.5 10^3/uL (0.2-0.9) 07/09/22 22:46 Eos # (Auto) 0.0 10^3/uL (0.0-0.8) 07/09/22 22:46 Baso # (Auto) 0.0 10^3/uL (0.0-0.1) 07/09/22 22:46 Nucleated RBC % (auto) 0 % 07/09/22 22:46 Nucleated RBCs # 0.0 /100WBC 07/09/22 22:46 Sodium 141 mmol/L (136-145) 07/09/22 22:46 Potassium 3.4 mmol/L (3.5-5.1) L 07/09/22 22:46 Chloride 106 mmol/L (98-107) 07/09/22 22:46 Carbon Dioxide 24 mmol/L (22-29) 07/09/22 22:46 Anion Gap 14.4 (5-19) 07/09/22 22:46 BUN 12 mg/dL (6-20) 07/09/22 22:46 Creatinine 0.8 mg/dL (0.5-0.9) 07/09/22 22:46 GFR Calculation 90.5 mL/min (90-130) 07/09/22 22:46 Glucose 88 mg/dL (65-115) 07/09/22 22:46 Calculated Osmolality 291 mOsm/kg (285-295) 07/09/22 22:46 Calcium 8.9 mg/dL (8.5-10.5) 07/09/22 22:46 Total Bilirubin 0.4 mg/dL (0.15-1.2) 07/09/22 22:46 AST 12 U/L (0-32) 07/09/22 22:46 ALT 8 U/L (0-33) 07/09/22 22:46 Alkaline Phosphatase 77 U/L (35-105) 07/09/22 22:46 Total Protein 7.0 g/dL (6.6-8.7) 07/09/22 22:46 Albumin 4.2 g/dL (3.5-5.2) 07/09/22 22:46 Globulin 2.8 g/dL (1.3-4.6) 07/09/22 22:46 Discharge Plan Discharge Patient Disposition: Home Clinical Impression: Headache Condition: Stable Prescriptions: No Action control PO fluoxetine [Prozac] 20 mg capsule 20 mg PO DAILY tramadol 50 mg tablet 50 mg PO Q6H PRN (Reason: pain) 7 Days Qty: 28 0RF ondansetron 8 mg tablet,disintegrating 8 mg PO Q8H PRN (Reason: nausea and vomiting) 5 Days Qty: 15 0RF Discharge Orders: Discharge ED (Routine); Ordered 07/09/22 Ordered By: Troy Rushing Referrals: Kwaku Barber MD [Primary Care Provider] - 1-3 days Discharge Diet: Advance as tolerated Discharge Activity: Resume usual activity Patient Instructions: General Headache (ED) Coding Level of Care Code ED Contact Center Assistant for Chg Mili
[2022-07-09 22:40] VITALS: BP 127/87; PULSE 80; RESP 16; O2SAT 100
[2022-07-09] MEDS: metoclopramide 5 mg/mL SDV 2 mL 10 MG IVP (22:48)
[2022-07-09] MEDS: diphenhydrAMINE 50 mg/mL SDV 1mL IVP (22:48)
[2022-07-09 22:55] LABS: Basophils % 0.3 %; Eosinophils % 0.4 %; Hematocrit 38.9 % (37.0-47.0); Hemoglobin 12.5 g/dL (11.5-15.3); Lymphocytes # 3.2 10^3/uL (0.8-4.8); Lymphocytes % 34.9 %; Mean Corpuscular HGB Conc 32.1 g/dL (30.0-36.0); Mean Corpuscular Hemoglobin 28.8 pg (28.0-34.0); Mean Corpuscular Volume 89.6 fl (81-99); Monocytes # 0.5 10^3/uL (0.2-0.9); Monocytes % 5.4 %; Neutrophils # 5.35 10^3/uL (1.8-7.7); Neutrophils % 58.8 %; Nucleated Red Blood Cells % 0 %; Platelet Count 209 10^3/cmm (130-400); Red Blood Count 4.34 10^6/uL (4.1-5.3); Red Cell Distribution Width 14.4 % (12.1-15.1); White Blood Count 9.1 10^3/uL (4.0-10.0)
[2022-07-09 23:15] LABS: Alanine Aminotransferase 8 U/L (0-33); Albumin Level 4.2 g/dL (3.5-5.2); Alkaline Phosphatase 77 U/L (35-105); Anion Gap 14.4 (5-19); Aspartate Amino Transferase 12 U/L (0-32); Blood Urea Nitrogen 12 mg/dL (6-20); Calcium 8.9 mg/dL (8.5-10.5); Carbon Dioxide 24 mmol/L (22-29); Chloride 106 mmol/L (98-107); Globulin 2.8 g/dL (1.3-4.6); Glomerular Filtration Rate 90.5 mL/min (90-130); Glucose 88 mg/dL (65-115); Osmolality Calculated 291 mOsm/kg (285-295); Potassium 3.4 mmol/L (3.5-5.1); Sodium 141 mmol/L (136-145); Total Bilirubin 0.4 mg/dL (0.15-1.2)
[2022-07-09 23:30] VITALS: BP 115/76; PULSE 74; RESP 18; O2SAT 99
[2022-07-09 23:59] VITALS: BP 115/76; PULSE 78; RESP 16; O2SAT 98
== END 2022-07-10 | disposition home or self-care (01) ==
PROVIDERS: Emergency Provider Emergency Medicine; PCP Family Medicine
DX: R51.9 Headache, unspecified (principal)
CPT/HCPCS: 36415; 70450; 80053; 85025; 96374; 96375; 99285; J1200; J2765

== ENCOUNTER 2022-07-13 20:32 | Emergency (ER) | payer MEDICAID, SELFPAY ==
[2022-07-13 20:39] VITALS: BP 133/88; PULSE 103; RESP 16; TEMP 36.7; O2SAT 100; BMI 22.5
--- NOTE | 2022-07-13 21:36 | ED_ITS ---
HPI - Headache General: Chief Complaint: Headache Stated Complaint: headache, nausea Time Seen by Provider: 07/13/22 21:34 History of Present Illness: 21-year-old female comes in today with complaints of headache, neck pain, and mid back pain. Patient reports no falls or injuries. Patient had severe pain on Wednesday which almost made her pass out in the bathroom. Patient was evaluated on the in the ER but showed noes abnormalities of the brain on the CT or any of her lab work. Patient appears nontoxic. Patient appears in no acute distress. Associated symptoms: Deny chest pain, nausea, rash or vomiting Review of Systems General: Reports: 10 or more systems reviewed and unremarkable except in HPI and below Card: Denies: chest pain Resp: Denies: dyspnea GI: Denies: nausea or vomiting : Denies: difficulty voiding Musc: Reports: neck pain and back pain Skin/Breast: Denies: rash Neuro: Reports: headache(s) Psych: Denies: anxiety PFSH ED PFSH: Medical History (Updated 07/13/22 @ 23:00 by ROSA Perera) Deep vein thrombosis (DVT) affecting Social History Smoking and tobacco status: never smoked Alcohol intake: never Number of children: 1 Physical Exam Const: COMMON NORMALS: patient oriented x3 HENMT: COMMON NORMALS: normocephalic HEAD & SCALP: normocephalic THROAT: posterior oropharynx normal Neck/C-Spine: CERVICAL SPINE: Yes Paracervical muscle tenderness Resp: COMMON NORMALS: normal respiratory effort and clear to auscultation bilaterally AUSCULTATION: clear to auscultation bilaterally Cardio: COMMON NORMALS: regular rate and regular rhythm RATE: regular rate RHYTHM: regular rhythm GI: COMMON NORMALS: non-tender Back/Pelvis: LUMBAR SPINE/LOWER BACK: Yes paraspinal muscle tenderness Extremity: COMMON NORMALS: full ROM Neuro: COMMON NORMALS: patient oriented x3 Skin: COMMON NORMALS: turgor normal GENERAL SKIN EXAM: turgor normal Course Vital Signs: Vital signs: Vital Signs Temperature 98.0 F 07/13/22 20:39 Pulse Rate 98 07/13/22 22:19 Respiratory Rate 20 H 07/13/22 22:19 Blood Pressure 127/84 07/13/22 22:19 Pulse Oximetry 100 07/13/22 22:19 Oxygen Delivery Me thod 07/13/22 22:19 MDM - Headache Medical Decision Making Patient comes in for persistent headache for the last week. Patient has been treated at an urgent care with Toradol and dexamethasone and then was seen the next day in the emergency room and treated with diphenhydramine and me toclopramide. Patient continues to have neck and now back pain. Patient appears nontoxic. Patient reports no other symptoms of infection. Denies fever or chills. Abdomen soft nontender. Patient has some muscle tenderness in the back and cervical neck. No point tenderness is noted along the spine. Vital signs are normal except for some elevation in pulse at 103. Differential diagnosis includes but not limited to muscle strain, intervertebral disc disease, migraine headache, malingering. Laboratory values were unremarkable. Sed rate and CRP were within normal limits. No changes were noted in CBC or CMP. Patient was given a dose of Reglan through the IV with no changes in her headache. Patient refused Toradol and dexamethasone. Patient was offered further medication to treat her headache but she refused. Recommended follow-up with neurology for further evaluation of her persistent headache which has been going on for 1 month. Reassured her that so far all of her labs did not show any signs of infection or autoimmune disorder, and CT done on the was unremarkable showing no signs of bleeding or other acute abnormalities. Patient reported understanding and agreed to plan. Lab Data 07/13/22 22:05 07/13/22 22: Laboratory Results WBC 8.2 10^3/uL (4.0-10.0) 07/13/22 22: RBC 4.86 10^6/uL (4.1-5.3) 07/13/22 22: Hgb 14.2 g/dL (11.5-15.3) 07/13/22 22: Hct 43.9 % (37.0-47.0) 07/13/22 22: MCV 90.3 fl (81-99) 07/13/22 22: MCH 29.2 pg (28.0-34.0) 07/13/22 22: MCHC 32.3 g/dL (30.0-36.0) 07/13/22 22: RDW 14.2 % (12.1-15.1) 07/13/22 22:05 Plt Count 235 10^3/cmm (130-400) 07/13/22 22:05 MPV 11.9 fL (7.4-10.4) H 07/13/22 22:05 Neut % (Auto) 62.8 % 07/13/22 22:05 Lymph % (Auto) 30.7 % 07/13/22 22:05 Mitchell % (Auto) 5.1 % 07/13/22 22:05 Eos % (Auto) 1.0 % 07/13/22 22:05 Baso % (Auto) 0.2 % 07/13/22 22:05 Neut # (Auto) 5.17 10^3/uL (1.8-7.7) 07/13/22 22:05 Lymph # (Auto) 2.5 10^3/uL (0.8-4.8) 07/13/22 22:05 Mitchell # (Auto) 0.4 10^3/uL (0.2-0.9) 07/13/22 22:05 Eos # (Auto) 0.1 10^3/uL (0.0-0.8) 07/13/22 22:05 Baso # (Auto) 0.0 10^3/uL (0.0-0.1) 07/13/22 22:05 Nucleated RBC % (auto) 0 % 07/13/22 22:05 Nucleated RBCs # 0.0 /100WBC 07/13/22 22:05 ESR 1 mm/hr (0-15) 07/13/22 22:05 Sodium 132 mmol/L (136-145) L 07/13/22 22:05 Potassium 3.6 mmol/L (3.5-5.1) 07/13/22 22:05 Chloride 98 mmol/L (98-107) 07/13/22 22:05 Carbon Dioxide 24 mmol/L (22-29) 07/13/22 22:05 Anion Gap 13.6 (5-19) 07/13/22 22:05 BUN 10 mg/dL (6-20) 07/13/22 22:05 Creatinine 0.7 mg/dL (0.5-0.9) 07/13/22 22:05 GFR Calculation 105.6 mL/min (90-130) 07/13/22 22:05 Glucose 77 mg/dL (65-115) 07/13/22 22:05 Calculated Osmolality 272 mOsm/kg (285-295) L 07/13/22 22:05 Calcium 8.9 mg/dL (8.5-10.5) 07/13/22 22:05 Total Bilirubin 0.6 mg/dL (0.15-1.2) 07/13/22 22:05 AST 10 U/L (0-32) 07/13/22 22:05 ALT 8 U/L (0-33) 07/13/22 22:05 Alkaline Phosphatase 94 U/L (35-105) 07/13/22 22:05 C-Reactive Protein 3.0 mg/L (0.0-4.9) 07/13/22 22:05 Total Protein 7.9 g/dL (6.6-8.7) 07/13/22 22:05 Albumin 4.9 g/dL (3.5-5.2) 07/13/22 22:05 Globulin 3.0 g/dL (1.3-4.6) 07/13/22 22:05 Lipase 31 U/L (13-60) 07/13/22 22:05 HCG, Qual Negative (Negative) 07/13/22 22:05 Urine Color Yellow (Yellow) 07/13/22 22:21 Urine Appearance Clear (CLEAR) 07/13/22 22:21 Urine pH 5 (5-7) 07/13/22 22:21 Ur Specific [place] 1.020 (1.005-1.030) 07/13/22 22:21 Urine Protein Neg (Negative) 07/13/22 22:21 Urine Glucose (UA) Norm (Normal) 07/13/22 22:21 Urine Ketones Negative (Negative) 07/13/22 22:21 Urine Blood 2+ (Negative) H 07/13/22 22:21 Urine Nitrate Negative (Negative) 07/13/22 22:21 Urine Bilirubin Neg (Negative) 07/13/22 22:21 Urine Urobilinogen 4 mg/dL (Negative) H 07/13/22 22:21 Ur Leukocyte Esterase Negative (Negative) 07/13/22 22:21 Urine RBC 0-4 /hpf (0-2) H 07/13/22 22:21 Urine WBC 0-4 /hpf (0-5) H 07/13/22 22:21 Ur Squamous Epith Cells 5-10 /hpf (0-5) H 07/13/22 22:21 Amorphous Sediment Not Reportable 07/13/22 22:21 Urine Bacteria Trace /hpf (NONE) 07/13/22 22:21 Urine Mucus 1+ /hpf 07/13/22 22:21 Discharge Plan Discharge Patient Disposition: Home Clinical Impression: Headache Condition: Stable Prescriptions: No Action control PO fluoxetine [Prozac] 20 mg capsule 20 mg PO DAILY tramadol 50 mg tablet 50 mg PO Q6H PRN (Reason: pain) 7 Days Qty: 28 0RF ondansetron 8 mg tablet,disintegrating 8 mg PO Q8H PRN (Reason: nausea and vomiting) 5 Days Qty: 15 0RF Discharge Orders: Discharge ED (Routine); Ordered 07/13/22 Ordered By: Jerad Judd Referrals: Kwaku Barber MD [Primary Care Provider] - Discharge Diet: Usual diet Discharge Activity: Increase activity as tolerated Patient Instructions: General Headache (ED) Activity Restrictions/Additional Instructions: Home and rest. Drink plenty of water and fluids. Healthy diet and exercise. assistant manager airside operations will contact you regarding follow-up appointment with neurology. Return to ED for new concerns. Coding Level of Care Code ED Medical Manager for Esthela Garces
[2022-07-13 22:10] LABS: Basophils % 0.2 %; Eosinophils # 0.1 10^3/uL (0.0-0.8); Hematocrit 43.9 % (37.0-47.0); Hemoglobin 14.2 g/dL (11.5-15.3); Lymphocytes # 2.5 10^3/uL (0.8-4.8); Lymphocytes % 30.7 %; Mean Corpuscular HGB Conc 32.3 g/dL (30.0-36.0); Mean Corpuscular Hemoglobin 29.2 pg (28.0-34.0); Mean Corpuscular Volume 90.3 fl (81-99); Mean Platelet Volume 11.9 fL (7.4-10.4); Monocytes # 0.4 10^3/uL (0.2-0.9); Monocytes % 5.1 %; Neutrophils # 5.17 10^3/uL (1.8-7.7); Neutrophils % 62.8 %; Nucleated Red Blood Cells % 0 %; Platelet Count 235 10^3/cmm (130-400); Red Blood Count 4.86 10^6/uL (4.1-5.3); Red Cell Distribution Width 14.2 % (12.1-15.1); White Blood Count 8.2 10^3/uL (4.0-10.0)
[2022-07-13] MEDS: metoclopramide 5 mg/mL SDV 2 mL 10 MG IVP (22:14)
[2022-07-13] MEDS: sodium chloride 0.9% 500 ML 999 ML IV (22:14)
[2022-07-13 22:15] LABS: Erythrocyte Sedimentation Rate 1 mm/hr (0-15)
[2022-07-13] MEDS: sodium chloride 0.9% 1,000 ML 999 ML IV (22:15)
[2022-07-13 22:19] VITALS: BP 127/84; PULSE 98; RESP 20; O2SAT 100
[2022-07-13 22:27] LABS: Alanine Aminotransferase 8 U/L (0-33); Albumin Level 4.9 g/dL (3.5-5.2); Alkaline Phosphatase 94 U/L (35-105); Anion Gap 13.6 (5-19); Aspartate Amino Transferase 10 U/L (0-32); Blood Urea Nitrogen 10 mg/dL (6-20); Calcium 8.9 mg/dL (8.5-10.5); Carbon Dioxide 24 mmol/L (22-29); Chloride 98 mmol/L (98-107); Glomerular Filtration Rate 105.6 mL/min (90-130); Glucose 77 mg/dL (65-115); Lipase 31 U/L (13-60); Osmolality Calculated 272 mOsm/kg (285-295); Potassium 3.6 mmol/L (3.5-5.1); Sodium 132 mmol/L (136-145); Total Bilirubin 0.6 mg/dL (0.15-1.2); Total Protein 7.9 g/dL (6.6-8.7)
[2022-07-13 22:31] LABS: Bilirubin Urine Neg (Negative); Blood Urine 2+ (Negative); Glucose Urine UA Norm (Normal); Ketones Urine Negative (Negative); Nitrate Urine Negative (Negative); Protein Urine Neg (Negative); Urine Appearance Clear (CLEAR); Urine Color Yellow (Yellow); pH Urine 5 (5-7)
[2022-07-13 22:32] LABS: Add Urine Culture? No; Add Urine Microscopic? YES; Bacteria Urine TRACE /hpf; Leukocyte Esterase Urine Negative (Negative); Mucus Urine 1+ /hpf; RBC Urine 0-4 /hpf (0-2); Urobilinogen Urine 4 mg/dL (Negative); WBC Urine 0-4 /hpf (0-5)
[2022-07-13 22:33] LABS: HCG, Serum Qual Negative (Negative)
[2022-07-13 23:07] VITALS: BP 127/84; PULSE 81; RESP 19; O2SAT 98
--- NOTE | 2022-07-14 11:27 | DCPLANNER ---
Addendum entered by Paola Aburto 08/27/22 09:25: Patient had a follow up appointment scheduled with neurology - patient did attend appointment. Addendum entered by Paola Aburto 07/28/22 12:10: Patient has a follow up appointment scheduled for Wednesday, August 26, 2022 at 11:[address] Hodgson. Original Note: senior relationship manager had message to schedule a follow up appointment for patient with neurology. senior relationship manager sent patients information to the front office staff at neurology. Patients information will be printed and reviewed. Clinic will call patient with appointment information.
== END 2022-07-13 23:19 | disposition home or self-care (01) ==
PROVIDERS: Emergency Provider Nurse Practitioner Family; PCP Family Medicine
DX: R51.9 Headache, unspecified (principal)
CPT/HCPCS: 36415; 80053; 81001; 83690; 84703; 85025; 85651; 86140; 96361; 96374; 99284; J2765; J7030; J7040

== ENCOUNTER 2022-08-11 15:24 | Outpatient (CLI) | payer MEDICAID, SELFPAY ==
--- NOTE | 2022-08-11 | MR_ITS ---
WS: [id number] MRI HEAD WITH CONTRAST TECHNIQUE: Sagittal T1, T2 axial, T2 axial FLAIR, axial susceptibility weighted imaging, axial diffus ion weighted images, and coronal T2 images were obtained. Pre and post-T1 axial and post T1 coronal i mages. ADC and FSPGR images. CLINICAL INFORMATION: MIGRAINE COMPARISON: CT July 09, 2022 FINDINGS: No evidence of restricted diffusion to suggest acute ischemia. Ventricular system and basal cisterns are patent. A few tiny punctate foci of T2 hyperintensity in the periventricular and subcortical whit e matter mainly in the frontal lobes and frontal parietal junction nonspecific but can be seen with m igraine headaches. Normal posterior fossa. Normal vascular flow voids at the skull base. No extra-axi al fluid collections. No evidence of mass or mass effect. Mild mucosal thickening in the paranasal si nuses. Small amount of fluid in the ethmoid air cells. Partial opacification RIGHT mastoid tip. Parti al opacification LEFT frontal ethmoidal recess. LEFT mastoid air cells are well aerated. Normal posterior nasopharynx. Normal parapharyngeal fat. No hemosiderin on susceptibly weighted images. Normal optic chiasm and pituitary infundibulum. Temporal lobes and hippocampal formations are normal in appearance. No abnormal intercranial enhancement. Normal dural venous sinuses. No enhancing intracranial lesions. MR/MR head wo/w con [id number] IMPRESSION: 1. No evidence of restricted diffusion to suggest acute ischemia. 2. Mild supratentorial white matter changes mainly in the periventricular and subcortical white matter nonspecific in a patient this age but can be seen with migraine headaches. 3. No hemosiderin on susceptibly weighted images. 4. No abnormal intracranial enhancement. 5. Normal optic chiasm and pituitary infundibulum. 6. Mild paranasal sinusitis with partial opacification of the LEFT frontal eth moidal recess. Partial opacification RIGHT mastoid tip.
[2022-08-11] MEDS: gadobenate dimeglumine 20 mL vial IV (16:11)
== END 2022-08-11 15:25 | disposition home or self-care (01) ==
LOC: RAD 15:25
PROVIDERS: PCP Family Medicine; Visit Provider Family Medicine
DX: R51.9 Headache, unspecified (principal); J32.4 Chronic pansinusitis
CPT/HCPCS: 70553; A9577

== ENCOUNTER → 2022-08-26 13:00 | Outpatient (BNVA) | payer MEDICAID, SELFPAY | PROVIDERS: PCP Family Medicine; Referring Provider Nurse Practitioner Family; Visit Provider Specialist | DX: E03.8 Other specified hypothyroidism (principal); D68.61 Antiphospholipid syndrome | CPT/HCPCS: 36415; 83516; 86147 ==

== ENCOUNTER 2022-11-14 20:56 | Emergency (ER) | payer MEDICAID, SELFPAY ==
--- NOTE | 2022-11-14 21:01 | XRR_ITS ---
PROCEDURE INFORMATION: Exam: XR Right Foot Exam date and time: 11/14/2022 9:29 PM Age: 22 years old Clinical indication: Injury or trauma; Fall; Blunt trauma; Toes; Right lesser toe(s) TECHNIQUE: Imaging protocol: Radiologic exam of the right foot. Views: 3 or more views. COMPARISON: No relevant prior studies available. FINDINGS: Bones/joints: Normal. Soft tissues: Normal. XR/XR foot RT min 3V* [id number] IMPRESSION: No acute findings.
[2022-11-14 21:24] VITALS: BP 111/75; PULSE 82; RESP 14; TEMP 36.7; O2SAT 99
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
[2022-11-14] MEDS: HYDROcodone-acetaminophen 5-325 mg Tablet 1 TAB PO (23:01)
== END 2022-11-14 23:06 | disposition home or self-care (01) ==
PROVIDERS: Emergency Provider Nurse Practitioner Family; PCP Family Medicine
DX: S90.121A Contusion of right lesser toe(s) without damage to nail, initial encounter (principal); W20.8XXA Other cause of strike by thrown, projected or falling object, initial encounter
CPT/HCPCS: 73630; 99283

== ENCOUNTER 2023-02-04 21:45 | Emergency (ER) | payer MEDICAID, SELFPAY ==
[2023-02-04 21:50] VITALS: BP 137/87; PULSE 89; RESP 16; TEMP 36.9; O2SAT 100; BMI 22.1
[2023-02-04] MEDS: lidocaine 2% viscous 15 mL UDC 10 ML MUCOUS MEM (23:32)
[2023-02-04] MEDS: ketorolac 60 mg/2 mL INJ IM (23:32)
[2023-02-04] MEDS: amoxicillin-clav 875-125 mg Tablet 1 TAB PO (23:33)
--- NOTE | 2023-02-05 00:33 | W.ED.DENTAL ---
HPI - Dental/Oral General: Chief complaint: Dental/Oral Stated complaint: Tooth Ache Time Seen by Provider: 02/04/23 22:54 Source: patient Mode of arrival: ambulatory Limitations: no limitations History of Present Illness: Patient presents to the emergency department today for evaluation treatment of right lower posterior dental pain. She notes onset several days ago with acute worsening this morning also, she reports off-and-on pain now for quite some time. Patient states that is her wisdom teeth. She reports she does have a dentist here in the area but cannot recall his name. Patient is also complaining of right ear pain and pain radiating down the side of her neck. She states she has not taken anything for her pain today. Review of Systems General: Reports: 10 or more systems reviewed and unremarkable except in HPI and below PFSH ED PFSH: Medical History Deep vein thrombosis (DVT) affecting Social History Smoking and tobacco/nicotine status: never used tobacco/nicotine Alcohol intake: never Substance/Drug Use: never Number of children: 1 Physical Exam Const: COMMON NORMALS: no acute distress, patient oriented x3 and alert HENMT: OTHER: Dental examination shows only partially visible wisdom teeth throughout as they are still all partially covered with gum tissue. In the right lower jawline, gum is swollen and red without any active draining noted. Airway is patent. Uvula is midline. Mucous membranes are moist. Right TM is nonerythematous, nonbulging. EAC is clear without swelling or erythema or occlusion. Eye: COMMON NORMALS: Equal, round and reactive pupils present, EOMs intact bilaterally and conjunctivae normal CONJUNCTIVA: Yes conjunctivae normal PUPIL: Yes Equal, round and reactive pupils present Neck/C-Spine: COMMON NORMALS: no JVD Lymph: LYMPHATIC: no lymphadenopathy noted Resp: COMMON NORMALS: normal respiratory effort, No retractions and No use of accessory muscles Cardio: COMMON NORMALS: no JVD and regular rate RATE: regular rate : COMMON NORMALS: Yes no CVA tenderness BLADDER/KIDNEY EXAM: Yes no CVA tenderness Back/Pelvis: COMMON NORMALS: no CVA tenderness, thoracic and lumbar spine normal to inspection and thoraco-lumbar ROM normal Extremity: COMMON NORMALS: normal to inspection, full ROM and no pedal edema Neuro: COMMON NORMALS: patient oriented x3 SENSORIUM/ORIENTATION: Yes alert Skin: COMMON NORMALS: no rashes or lesions noted and turgor normal GENERAL SKIN EXAM: no rashes or lesions noted and turgor normal Course Vital Signs: Vital signs: Vital Signs Temperature 98.4 F 02/04/23 21:50 Pulse Rate 89 02/04/23 21:50 Respiratory Rate 16 02/04/23 21:50 Blood Pressure 137/87 02/04/23 21:50 Pulse Oximetry 100 02/04/23 21:50 MDM - Dental/Oral Medical Decision Making Patient's examination reveals partially covered wisdom teeth still with overlying gum tissue. Discussed with her that this often catches food and other oral debris underneath the gums trapping them and allowing for bacterial growth. The likelihood of her having an infection is extremely high given her worsening pain over the last few days. However, patient's pain will most likely return even with treatment until more definitive management of her wisdom teeth is made. She was encouraged to reach out to her dentist for [place] in the morning. Patient is started on Augmentin here in the emergency department with nonnarcotic treatment here as she is driving herself. However, continue prescription for Augmentin, ibuprofen, and a very short course of [place] was provided to her to be picked up and continued in the morning. Patient verbalized understanding and agreement to treatment plan. Differential Diagnosis Likely toothache and dental abscess; Unlikely gingival abscess, dental caries or fracture of tooth No radiology studies performed this visit Discharge Plan Discharge Patient Disposition: Home Clinical Impression: Dental abscess, Toothache Condition: Stable Prescriptions: New ibuprofen 800 mg tablet 800 mg PO Q8H PRN (Reason: pain) Qty: 21 0RF amoxicillin-pot clavulanate 875-125 mg tablet 1 tab PO BID 10 Days Qty: 20 0RF No Action control PO neomycin-polymyxin B-dexameth [Maxitrol] 3.5mg/mL-10,000 unit/mL-0.1 % drops,suspension 2 drp ophthalmic (eye) QID 7 Days Qty: 5 0RF Emgality Pen 120 mg/mL pen injector 240 mg SUBCUT ONCE Qty: 2 0RF Rx Instructions: 240 mg subcut once. Emgality Pen 120 mg/mL pen injector 120 mg SUBCUT .monthly Qty: 1 5RF Rx Instructions: 120 mg subcut monthly ondansetron HCl 4 mg tablet 4 mg PO Q8H PRN (Reason: nausea and vomiting) Qty: 30 0RF propranolol 10 mg tablet 10 mg PO BID Qty: 60 3RF sumatriptan succinate 100 mg tablet 100 mg PO Q2H PRN (Reason: migraine headache) Qty: 9 0RF Rx Instructions: do not exceed 2 doses per 24 hrs sertraline [Zoloft] 50 mg tablet 50 mg PO DAILY topiramate [Topamax] 25 mg tablet 25 mg PO DAILY 30 Days Qty: 30 1RF amitriptyline 25 mg tablet 25 mg PO DAILY Qty: 30 3RF Rx Instructions: Take at bedtime hydrocodone-acetaminophen 5-325 mg tablet 1 tab PO Q8H PRN (Reason: pain (scale score 7-10)) Qty: 6 0RF Discharge Orders: Discharge ED (Routine); Ordered 02/04/23 Ordered By: Janeth Perez Referrals: Kwaku Barber MD [Primary Care Provider] - Discharge Diet: Advance as tolerated Discharge Activity: Resume usual activity Patient Instructions: Dental Abscess (ED), Toothache (ED) Activity Restrictions/Additional Instructions: On your examination there is swelling of the gumline at and around your right wisdom tooth. As we discussed, your wisdom tooth is still partially covered by gum tissue which easily traps food and other oral debris underneath the tissue. This allows for festering of bacteria leading to infection. Swelling then puts pressure on the nerves along the jawline causing significant pain. We are treating your infection as well as pain here in the emergency department but, continue to follow-up with your dentist as soon as possible for definitive treatment or you will continue to have issues with pain and infection to your wisdom teeth. Coding Level of Care Code ED Medical Legal Investigator for Esthela Garces
== END 2023-02-04 23:39 | disposition home or self-care (01) ==
PROVIDERS: Emergency Provider Physician Assistant; PCP Family Medicine
DX: K04.7 Periapical abscess without sinus (principal)
CPT/HCPCS: 96372; 99284; J1885

== ENCOUNTER 2023-06-29 05:41 | Emergency (ER) | payer MEDICAID, SELFPAY ==
--- NOTE | 2023-06-29 05:54 | ED_ITS ---
HPI - Dental/Oral General: Chief complaint: Dental/Oral Stated complaint: Tooth/Mouth pain Time Seen by Provider: 06/29/23 05:44 Source: patient Mode of arrival: ambulatory History of Present Illness: 22-year-old female presents emergency ro om with right-sided tooth pain began yesterday progressively worsening. No drainage no fever sweats or chills little bit of swelling on the right side of her gums. No difficulty with speech or swallowing she has some pain radiating to her ear. MD Complaint: tooth pain Onset (ago): day(s) (1) Severity: mild Relieving factors: nothing Exacerbating factors: nothing Context: history of dental caries Associated symptoms: Reports gum swelling; Denies ear or mastoid pain, fever(s), odynophagia, sore throat or tongue swelling Treatment prior to arrival: none Review of Systems Const: Denies: fever(s) or chills ENMT: Reports: mouth pain and dental pain; Denies: throat pain, odynophagia or ear or mastoid pain Card: Denies: chest pain Resp: Denies: dyspnea GI: Denies: abdominal pain : Denies: dysuria, urinary frequency or urinary urgency Musc: Denies: neck pain or back pain Skin/Breast: Denies: rash All/Imm: Denies: tongue swelling PFSH ED PFSH: Medical History Deep vein thrombosis (DVT) affecting Social History Smoking and tobacco/nicotine status: never used tobacco/nicotine Alcohol intake: never Substance/Drug Use: never Number of children: 1 Physical Exam Const: GENERAL APPEARANCE: cooperative and comfortable ORIENTATION/CONSCIOUSNESS: Yes awake, Yes oriented to person, Yes oriented to place and Yes oriented to time HENMT: COMMON NORMALS: normocephalic, atraumatic and hearing grossly normal bilaterally HEAD & SCALP: normocephalic and atraumatic OTHER: Right mandibular plane premolar area mild swelling no drainage. No facial swelling Resp: COMMON NORMALS: normal respiratory effort, No retractions, No use of accessory muscles and clear to auscultation bilaterally AUSCULTATION: clear to auscultation bilaterally Cardio: COMMON NORMALS: regular rate, regular rhythm and No murmurs present (Cardio) RATE: regular rate RHYTHM: regular rhythm GI: COMMON NORMALS: Soft to palpation and No hepatosplenomegaly present AUSCULTATION: Yes normoactive bowel sounds PALPATION: Yes Soft to palpation, No Tenderness to palpation present (GI), No Guarding due to palpation present (GI) and Yes No hepatosplenomegaly present Extremity: COMMON NORMALS: normal to inspection, capillary refill normal, no clubbing, cyanosis or edema, no calf tenderness and no pedal edema Neuro: SENSORIUM/ORIENTATION: Yes oriented to person, Yes oriented to place and Yes oriented to time Skin: COMMON NORMALS: no rashes or lesions noted GENERAL SKIN EXAM: no rashes or lesions noted Course Vital Signs: Vital signs: Vital Signs Temperature 98.1 F 06/29/23 06:52 Pulse Rate 70 06/29/23 06:52 Respiratory Rate 16 06/29/23 06:52 Blood Pressure 148/92 06/29/23 06:52 Pulse Oximetry 100 06/29/23 06:52 Oxygen Delivery Me thod Room Air 06/29/23 06:52 MDM - Dental/Oral Medical Decision Making Dental caries started on oral antibiotics. Diclofenac to use as needed encouraged follow-up with dentist for definitive care No radiology studies performed this visit Discharge Plan Discharge Patient Disposition: Home Clinical Impression: Dental caries Condition: Stable Prescriptions: New amoxicillin-pot clavulanate 875-125 mg tablet 1 tab PO BID Qty: 20 0RF diclofenac sodium 75 mg tablet,delayed release (DR/EC) 75 mg PO Q12H PRN (Reason: pain) Qty: 20 0RF No Action control PO neomycin-polymyxin B-dexameth [Maxitrol] 3.5mg/mL-10,000 unit/mL-0.1 % drops,suspension 2 drp ophthalmic (eye) QID 7 Days Qty: 5 0RF Emgality Pen 120 mg/mL pen injector 240 mg SUBCUT ONCE Qty: 2 0RF Rx Instructions: 240 mg subcut once. aripiprazole 5 mg tablet 5 mg PO DAILY Emgality Pen 120 mg/mL pen injector 120 mg SUBCUT .monthly Qty: 1 11RF Rx Instructions: 120 mg subcut monthly ondansetron HCl 4 mg tablet 4 mg PO Q8H PRN (Reason: nausea and vomiting) Qty: 30 0RF propranolol 10 mg tablet 10 mg PO BID Qty: 60 3RF sertraline [Zoloft] 50 mg tablet 50 mg PO DAILY topiramate [Topamax] 25 mg tablet 25 mg PO DAILY 30 Days Qty: 30 1RF amoxicillin 875 mg tablet 875 mg PO BID 7 Days Qty: 14 0RF amitriptyline 25 mg tablet 25 mg PO DAILY Qty: 30 3RF Rx Instructions: Take at bedtime rizatriptan [Maxalt] 10 mg tablet 10 mg PO Q2H PRN (Reason: migraine headache) Qty: 10 3RF Rx Instructions: do not exceed 2 doses per 24 hrs ibuprofen 800 mg tablet 800 mg PO Q8H PRN (Reason: pain) Qty: 21 0RF hydrocodone-acetaminophen 5-325 mg tablet 1 tab PO Q8H PRN (Reason: pain (scale score 7-10)) Qty: 6 0RF Discharge Orders: Discharge ED (Routine); Ordered 06/29/23 Ordered By: Cory Cash Referrals: Kwaku Barber MD [Primary Care Provider] - Discharge Diet: Soft Mechanical Discharge Activity: Resume usual activity Patient Instructions: Dental Caries (Cavities), Opioid Safety, Pain Management Activity Restrictions/Additional Instructions: Thank you for choosing [facility] for your healthcare needs today. Please realize this is an emergency room and that we are providing you with a medical screening exam and this may not be complete and all inclusive of all the testing and or work up that you may need to determine your ailment or severity of your illness. It is very important that you follow up as instructed or that you return to the Emergency Department should you have concerns or if your condition changes or worsens in any way. You are seen today for tooth pain. You are given a prescription for an anti- inflammatory and an antibiotic. Recommend that you see a dentist as soon as possible for definitive care Coding Level of Care Code ED Electrical Designer Drafter for Esthela Garces
[2023-06-29 06:52] VITALS: BP 148/92; PULSE 70; RESP 16; TEMP 36.7; O2SAT 100; BMI 25.8
== END 2023-06-29 07:09 | disposition home or self-care (01) ==
PROVIDERS: Emergency Provider Family Medicine; PCP Family Medicine
DX: K02.9 Dental caries, unspecified (principal)
CPT/HCPCS: 99283

== ENCOUNTER 2023-06-30 22:01 | Emergency (ER) | payer MEDICAID, SELFPAY ==
[2023-06-30 22:03] VITALS: BP 126/86; PULSE 112; RESP 18; TEMP 36.7; O2SAT 100; BMI 26.6
--- NOTE | 2023-06-30 22:12 | ED_ITS ---
HPI - Dental/Oral 2 General: Chief complaint: Dental/Oral Stated complaint: fever, dental pain/ swelling Time Seen by Provider: 06/30/23 22:09 History of Present Illness: 22-year-old female comes in today with r ight submandibular swelling and tenderness. Patient was diagnosed with a dental abscess yesterday and started on Augmentin. Patient comes in today for continued complaints of pain and increased swelling and difficulty swallowing. Patient appears nontoxic. Patient is managing secretions well. Patient verbalizes without difficulty. Review of Systems 2 General: Reports: 10 or more systems reviewed and unremarkable except in HPI and below PFSH ED 2 PFSH: Medical History Deep vein thrombosis (DVT) affecting Social History Smoking and tobacco/nicotine status: never used tobacco/nicotine Alcohol intake: never Substance/Drug Use: never Number of children: 1 Physical Exam 2 Const: COMMON NORMALS: alert HENMT: COMMON NORMALS: normocephalic HEAD & SCALP: normocephalic FACE & SINUS: edema (Right submandibular) TEETH & GINGIVA: Yes other (No obvious abnormalities) Neck/C-Spine: COMMON NORMALS: full ROM and no meningeal signs Resp: COMMON NORMALS: normal respiratory effort and clear to auscultation bilaterally AUSCULTATION: clear to auscultation bilaterally Cardio: COMMON NORMALS: regular rate and regular rhythm RATE: regular rate RHYTHM: regular rhythm GI: COMMON NORMALS: Soft to palpation and non-tender PALPATION: Yes Soft to palpation Back/Pelvis: COMMON NORMALS: thoracic and lumbar spine normal to inspection Extremity: COMMON NORMALS: full ROM Neuro: SENSORIUM/ORIENTATION: Yes alert MENINGEAL SIGNS: Yes no meningeal signs Skin: COMMON NORMALS: turgor normal GENERAL SKIN EXAM: turgor normal Course 2 Vital Signs: Vital signs: Vital Signs Temperature 98.1 F 06/30/23 22:03 Pulse Rate 112 H 06/30/23 22:03 Respiratory Rate 18 06/30/23 22:03 Blood Pressure 126/86 06/30/23 22:03 Pulse Oximetry 100 06/30/23 22:03 MDM - Dental/Oral Medical Decision Making 22-year-old female comes in today for complaints of difficulty swallowing and increasing swelling to the right submandibular area. Patient was diagnosed with a dental infection yesterday. Patient is managing secretions well and is able to speak in full sentences. Respirations are even lungs are clear to auscultation. Skin is warm and dry. Differential diagnoses includes but not limited to dental abscess, parotitis, lymphadenitis, salivary gland infection, retropharyngeal abscess. CBC CMP was unremarkable. CT of the neck noted tonsillar enlargement with sialoadenitis. Will change antibiotic from Augmentin to clindamycin. Encourage fluids and rest. Patient was given some clindamycin IV and some steroids and Toradol which had some mild relief of pain. Patient was also given a hydrocodone for further relief of pain. Patient reports understanding of care plan and need for follow-up or return to the ER. Lab Data 06/30/23:06/30/23: Radiology Impressions Neck CT 06/30/23:16 IMPRESSION: 1. Bilateral palatine tonsil enlargement compatible with tonsillitis. No evidence of tonsillar or peritonsillar abscess. 2. Inflammatory changes adjacent to the right palatine tonsil extend into the right maintenance supervisor electrical space and right neck with thickening and edema about the right platysma muscle. No associated fluid collection/abscess. 3. Asymmetric enlargement of right submandibular lymph nodes which are likely reactive. 4. Mild enlargement of the right submandibular gland may represent reactive sialadenitis. Laboratory Results WBC 9.08 10^3/uL (3.29-11.43) 06/30/23: RBC 4.52 10^6/uL (3.85-5.65) 06/30/23: Hgb 13.50 g/dL (11.27-16.99) 06/30/23: Hct 41.3 % (36-47) 06/30/23: MCV 91.4 fl (85-98) 06/30/23: MCH 29.9 pg (27-33) 06/30/23: MCHC 32.7 g/dL (30-55) 06/30/23: RDW 13.4 % (12.1-15.1) 06/30/23: Plt Count 195 10^3/cmm (157-399) 06/30/23: MPV 11.5 fL (7.4-10.4) H 06/30/23 22: Neut % (Auto) 76.9 % 06/30/23 22: Lymph % (Auto) 15.3 % 06/30/23 22: Elmore % (Auto) 6.2 % 06/30/23: Eos % (Auto) 0.8 % 06/30/23: Baso % (Auto) 0.6 % 06/30/23: Neut # (Auto) 6.99 10^3/uL (1.8-7.7) 06/30/23: Lymph # (Auto) 1.4 10^3/uL (0.8-4.8) 06/30/23: Elmore # (Auto) 0.6 10^3/uL (0.2-0.9) 06/30/23: Eos # (Auto) 0.1 10^3/uL (0.0-0.8) 06/30/23: Baso # (Auto) 0.1 10^3/uL (0.0-0.1) 06/30/23: Nucleated RBC % (auto) 0 % 06/30/23: Nucleated RBCs # 0.0 /100WBC 06/30/23: Sodium 137 mmol/L (136-145) 06/30/23: Potassium 4.1 mmol/L (3.5-5.1) 06/30/23: Chloride 102 mmol/L (98-107) 06/30/23 22: Carbon Dioxide 25 mmol/L (22-29) 06/30/23 22: Anion Gap 14.1 (5-19) 06/30/23 22: BUN 9 mg/dL (6-20) 06/30/23: Creatinine 0.6 mg/dL (0.5-0.9) 06/30/23: GFR Calculation 125.0 mL/min (90-130) 06/30/23: Glucose 88 mg/dL (65-115) 06/30/23: Calculated Osmolality 282 mOsm/kg (285-295) L 06/30/23: Calcium 9.2 mg/dL (8.5-10.5) 06/30/23 22:25 Total Bilirubin 0.8 mg/dL (0.15-1.2) 06/30/23 22:25 AST 15 U/L (0-32) 06/30/23 22:25 ALT 10 U/L (0-33) 06/30/23 22:25 Alkaline Phosphatase 103 U/L (35-105) 06/30/23 22:25 Total Protein 7.6 g/dL (6.6-8.7) 06/30/23 22:25 Albumin 4.3 g/dL (3.5-5.2) 06/30/23 22: Globulin 3.3 g/dL (1.3-4.6) 06/30/23 22:25 HCG, Qual Negative (Negative) 06/30/23 22:25 All radiology interpretation(s) finalized by discharge Discharge Plan Discharge Patient Disposition: Home Clinical Impression: Acute bacterial tonsillitis, Sialadenitis Condition: Stable Prescriptions: New clindamycin HCl 300 mg capsule 300 mg PO QID 7 Days Qty: 28 0RF prednisone 20 mg tablet 20 mg PO DAILY 3 Days Qty: 3 0RF Continued hydrocodone-acetaminophen 5-325 mg tablet 1 tab PO Q8H PRN (Reason: pain (scale score 7-10)) Qty: 6 0RF Discontinued amoxicillin 875 mg tablet 875 mg PO BID 7 Days Qty: 14 0RF amoxicillin-pot clavulanate 875-125 mg tablet 1 tab PO BID Qty: 20 0RF No Action control PO neomycin-polymyxin B-dexameth [Maxitrol] 3.5mg/mL-10,000 unit/mL-0.1 % drops,suspension 2 drp ophthalmic (eye) QID 7 Days Qty: 5 0RF Emgality Pen 120 mg/mL pen injector 240 mg SUBCUT ONCE Qty: 2 0RF Rx Instructions: 240 mg subcut once. aripiprazole 5 mg tablet 5 mg PO DAILY Emgality Pen 120 mg/mL pen injector 120 mg SUBCUT .monthly Qty: 1 11RF Rx Instructions: 120 mg subcut monthly ondansetron HCl 4 mg tablet 4 mg PO Q8H PRN (Reason: nausea and vomiting) Qty: 30 0RF propranolol 10 mg tablet 10 mg PO BID Qty: 60 3RF sertraline [Zoloft] 50 mg tablet 50 mg PO DAILY topiramate [Topamax] 25 mg tablet 25 mg PO DAILY 30 Days Qty: 30 1RF amitriptyline 25 mg tablet 25 mg PO DAILY Qty: 30 3RF Rx Instructions: Take at bedtime rizatriptan [Maxalt] 10 mg tablet 10 mg PO Q2H PRN (Reason: migraine headache) Qty: 10 3RF Rx Instructions: do not exceed 2 doses per 24 hrs ibuprofen 800 mg tablet 800 mg PO Q8H PRN (Reason: pain) Qty: 21 0RF diclofenac sodium 75 mg tablet,delayed release (DR/EC) 75 mg PO Q12H PRN (Reason: pain) Qty: 20 0RF Discharge Orders: Discharge ED (Routine); Ordered 06/30/23 Ordered By: Jerad Judd Referrals: Kwaku Barber MD [Primary Care Provider] - Discharge Diet: Usual diet Discharge Activity: Increase activity as tolerated Patient Instructions: Tonsillitis (ED) Activity Restrictions/Additional Instructions: Stop Augmentin. Take clindamycin 300 mg 4 times a day for the next 7 days. Use hydrocodone for pain. Drink plenty of water and fluids. Follow-up with primary care in 3 to 5 days for recheck. Return to ED for worsening symptoms. Coding Level of Care Code ED Organisation And Methods Analyst for Esthela Garces
--- NOTE | 2023-06-30 22:16 | CTR_ITS ---
PROCEDURE INFORMATION: Exam: CT Neck With Contrast Exam date and time: 06/30/2023 10:39 PM Age: 22 years old Clinical indication: Neck pain; Additional info: Right side abscess, throat pain TECHNIQUE: Imaging protocol: Computed tomography of the neck with contrast. Radiation optimization: All CT scans at this facility use at least one of these dose optimization techniques: automated exposure control; mA and/or kV adjustment per patient size (includes targeted exams where dose is matched to clinical indication); or iterative reconstruction. Contrast material: OMNI 350; Contrast volume: 100 ml; Contrast route: INTRAVENOUS (IV); COMPARISON: CR XR cervical spine 3V* [id number] 04/19/2020 6:52 PM RADIATION DOSE METRICS: Total DLP (mGy-cm): 175.94 FINDINGS: Pharynx: Enlargement of bilateral palatine tonsils with heterogeneous enhancement. No focal hypodensity/fluid collection within or around the palatine tonsils. Fluid/stranding is seen within the right film writer space adjacent to the oropharynx without discrete collection. Larynx: Unremarkable. Epiglottis is normal. Prevertebral and retropharyngeal spaces: Unremarkable. Salivary glands: Mild asymmetric enlargement of the right submandibular gland. Thyroid: Normal. No enlarged or calcified nodules. Lymph nodes: Asymmetric enlargement right submandibular lymph node up to 1 cm. Trachea: Visualized trachea is unremarkable. Lungs: Unremarkable as visualized. Bones/joints: Unremarkable. No acute fracture. Soft tissues: Asymmetric thickening of the right platysma with stranding/edema superficial and deep to the right platysma. CT/CT neck w con* [id number] IMPRESSION: 1. Bilateral palatine tonsil enlargement compatible with tonsillitis. No evidence of tonsillar or peritonsillar abscess. 2. Inflammatory changes adjacent to the right palatine tonsil extend into the right film writer space and right neck with thickening and edema about the right platysma muscle. No associated fluid collection/abscess. 3. Asymmetric enlargement of right submandibular lymph nodes which are likely reactive. 4. Mild enlargement of the right submandibular gland may represent reactive sialadenitis.
[2023-06-30] MEDS: clindamycin 600 MG/50 ML PREMIX 100 MG IV (22:25)
[2023-06-30] MEDS: dexamethasone 10 mg/mL INJ IVP (22:25)
[2023-06-30] MEDS: ketorolac 30 mg/mL INJ 15 MG IVP (22:25)
[2023-06-30] MEDS: sodium chloride 0.9% 500 ML 999 ML IV (22:26)
[2023-06-30 22:30] LABS: Basophils # 0.1 10^3/uL (0.0-0.1); Basophils % 0.6 %; Eosinophils # 0.1 10^3/uL (0.0-0.8); Eosinophils % 0.8 %; Hematocrit 41.3 % (36-47); Lymphocytes # 1.4 10^3/uL (0.8-4.8); Lymphocytes % 15.3 %; Mean Corpuscular HGB Conc 32.7 g/dL (30-55); Mean Corpuscular Hemoglobin 29.9 pg (27-33); Mean Corpuscular Volume 91.4 fl (85-98); Mean Platelet Volume 11.5 fL (7.4-10.4); Monocytes # 0.6 10^3/uL (0.2-0.9); Monocytes % 6.2 %; Neutrophils # 6.99 10^3/uL (1.8-7.7); Neutrophils % 76.9 %; Nucleated Red Blood Cells % 0 %; Platelet Count 195 10^3/cmm (157-399); Red Blood Count 4.52 10^6/uL (3.85-5.65); Red Cell Distribution Width 13.4 % (12.1-15.1); White Blood Count 9.08 10^3/uL (3.29-11.43)
[2023-06-30 22:40] LABS: HCG, Serum Qual Negative (Negative)
[2023-06-30] MEDS: iohexol 350 mg/mL 500 mL Btl (per mL) IV (22:43)
[2023-06-30 22:59] LABS: Alanine Aminotransferase 10 U/L (0-33); Albumin Level 4.3 g/dL (3.5-5.2); Alkaline Phosphatase 103 U/L (35-105); Blood Urea Nitrogen 9 mg/dL (6-20); Calcium 9.2 mg/dL (8.5-10.5); Carbon Dioxide 25 mmol/L (22-29); Chloride 102 mmol/L (98-107); Creatinine Clr Calc Pharmacy 168.0461; Globulin 3.3 g/dL (1.3-4.6); Glucose 88 mg/dL (65-115); Osmolality Calculated 282 mOsm/kg (285-295); Sodium 137 mmol/L (136-145); Total Bilirubin 0.8 mg/dL (0.15-1.2); Total Protein 7.6 g/dL (6.6-8.7)
[2023-06-30 23:01] LABS: Anion Gap 14.1 (5-19); Aspartate Amino Transferase 15 U/L (0-32); Potassium 4.1 mmol/L (3.5-5.1)
[2023-06-30] MEDS: HYDROcodone-acetaminophen 5-325 mg Tablet 1 TAB PO (23:55)
[2023-07-01 00:05] VITALS: BP 112/74; PULSE 98; RESP 16; O2SAT 98
== END 2023-07-01 00:06 | disposition home or self-care (01) ==
PROVIDERS: Emergency Provider Nurse Practitioner Family; PCP Family Medicine
DX: J03.80 Acute tonsillitis due to other specified organisms (principal); B96.89 Other specified bacterial agents as the cause of diseases classified elsewhere; K11.20 Sialoadenitis, unspecified
CPT/HCPCS: 70491; 80053; 84703; 85025; 96365; 96375; 99285; J1100; J1885; J3490; J7040; Q9967

== ENCOUNTER 2023-12-22 20:09 | Emergency (ER) | payer MEDICAID, SELFPAY ==
--- NOTE | 2023-12-22 20:18 | USR_ITS ---
PROCEDURE INFORMATION: Exam: US Duplex Left Lower Extremity Veins, Limited Exam date and time: 12/22/2023 8:47 PM Age: 23 years old Clinical indication: Pain; Leg, lower; Left TECHNIQUE: Imaging protocol: Real-time duplex ultrasound of the left extremity with 2-D villasenor scale, color Doppler flow and spectral waveform analysis including responses to compression and other maneuvers (when performed) with image documentation. Limited exam focused on the left lower extremity veins. COMPARISON: US OB >= 14 weeks fetus [id number] 04/19/2020 7:33 PM FINDINGS: Left deep veins: Unremarkable. The common femoral, femoral, proximal profunda femoral and popliteal veins are patent without thrombus. Normal Doppler waveforms. Normal compressibility and/or augmentation response. Superficial veins: Greater saphenous vein at the saphenofemoral junction is patent without thrombus. Soft tissues: Unremarkable. US/CV venous duplex [facility] [id number] IMPRESSION: No evidence of deep vein thrombosis.
[2023-12-22 20:19] VITALS: BP 123/86; PULSE 103; RESP 16; TEMP 36.8; O2SAT 98; BMI 27.0
--- NOTE | 2023-12-22 21:16 | W.ED.EXTPRO ---
HPI - Extremity Problem General: Chief complaint: Extremity Problem,Nontraumatic Stated complaint: 19 weeks preg, left leg pain Time Seen by Provider: 12/22/23 20:40 Source: patient Mode of arrival: ambulatory Limitations: no limitations History of Present Illness: Patient is a nice 23-year-old female at approximately 19 weeks here for left leg pain and concern for DVT. Patient states she has been having pain throughout her left lower extremity for about a week. She is not having any back or hip pain. She has not noticed any swelling to the extremity. No redness. She is ambulatory here without difficulty or assistance. Patient states during her last at around 25 weeks she developed a DVT requiring anticoagulation thus is concerned today. OB is Dr. Trujillo. Complaint: extremity pain Onset (ago): day(s) Pain Consistency: constant Location: left and lower extremity Radiation: none Relieving factors: nothing Exacerbating factors: nothing Associated symptoms: Deny chest pain, fever(s) or rash Related Data Home Medications Medication Instructions Recorded Confirmed control PO 11/06/20 03/31/23 sertraline 50 mg tablet (Zoloft) 50 mg PO DAILY 09/21/22 03/31/23 aripiprazole 5 mg tablet 5 mg PO DAILY 03/31/23 03/31/23 Previous Rx's Medication Instructions Recorded [id number] 3.5 2 drp ophthalmic (eye) QID 7 days 08/19/22 mg/mL-10,000 unit/mL-0.1% eye #5 mL drops (Maxitrol) ondansetron HCl 4 mg tablet 4 mg PO Q8H PRN nausea and 08/26/22 vomiting #30 tabs propranolol 10 mg tablet 10 mg PO BID #60 tabs 08/26/22 topiramate 25 mg tablet (Topamax) 25 mg PO DAILY 30 days #30 tabs 09/21/22 amitriptyline 25 mg tablet 25 mg PO DAILY #30 tabs 12/03/22 galcanezumab-gnlm 120 mg/mL 240 mg (2 mL) SUBCUT ONCE #2 mL 02/01/23 subcutaneous pen injector (Emgality Pen) ibuprofen 800 mg tablet 800 mg PO Q8H PRN pain #21 tabs 02/04/23 galcanezumab-gnlm 120 mg/mL 120 mg SUBCUT .monthly #1 mL 03/31/23 subcutaneous pen injector (Emgality Pen) rizatriptan 10 mg tablet (Maxalt) 10 mg PO Q2H PRN migraine headache 04/01/23 #10 tabs diclofenac sodium 75 mg 75 mg PO Q12H PRN pain #20 tabs 06/29/23 tablet,delayed release hydrocodone 5 mg-acetaminophen 325 1 tab PO Q8H PRN pain (scale score 06/30/23 mg tablet 7-10) #6 tabs Allergies Allergy/AdvReac Type Severity Reaction Status Date / Time No Known Allergies Allergy Verified 03/31/23 13:33 Review of Systems Const: Denies: fever(s) Card: Denies: chest pain, edema, swelling of feet/ankles, lightheadedness, syncope or pre-syncope Resp: Denies: dyspnea, pain on inspiration or hemoptysis Musc: Reports: extremity pain; Denies: neck pain, back pain, extremity swelling, joint pain or joint swelling Skin/Breast: Denies: rash Neuro: Denies: numbness in extremities, weakness in extremities, sensory changes or difficulty walking PFS ED PFSH: Medical History Deep vein thrombosis (DVT) affecting Social History Smoking and tobacco/nicotine status: never used tobacco/nicotine Alcohol intake: never Substance/Drug Use: never Number of children: 1 Physical Exam Const: COMMON NORMALS: no acute distress, patient oriented x3, no limitations, healthy appearing, alert and well nourished Resp: COMMON NORMALS: normal respiratory effort Cardio: COMMON NORMALS: regular rate and regular rhythm RATE: regular rate RHYTHM: regular rhythm Back/Pelvis: COMMON NORMALS: thoracic and lumbar spine normal to inspection and no thoracic nor lumbar tenderness PELVIS: No sciatic notch tenderness SACROILIAC JOINTS: Yes SI joints normal Extremity: COMMON NORMALS: normal to inspection, full ROM, capillary refill normal, no joint enlargement, no clubbing, cyanosis or edema, no calf tenderness and no pedal edema GENERAL: Yes normal exam except as noted Neuro: COMMON NORMALS: patient oriented x3 SENSORIUM/ORIENTATION: Yes alert Course Vital Signs: Vital signs: Vital Signs Temperature 98.2 F 09/11/24 20:19 Pulse Rate 83 12/22/23 21:51 Respiratory Rate 16 12/22/23 21:18 Blood Pressure 126/100 12/22/23 21:51 Pulse Oximetry 96 12/22/23 21:51 Oxygen Delivery Me thod Room Air 12/22/23 21:18 MDM - Extremity (Nontraumatic) Medical Decision Making According to preliminary report from [facility] tech. There is no DVT present. Patient is cleared to follow-up with her PCP or OB provider for further evaluation. Return precautions given. Medical Records I reviewed the patient's medical records. XR interpretation done by ED provider, pending radiology final review Discharge Plan Discharge Patient Disposition: Home Clinical Impression: Acute pain of left lower extremity Condition: Stable Prescriptions: No Action control PO neomycin-polymyxin B-dexameth [Maxitrol] 3.5mg/mL-10,000 unit/mL-0.1 % drops,suspension 2 drp ophthalmic (eye) QID 7 Days Qty: 5 0RF Emgality Pen 120 mg/mL pen injector 240 mg SUBCUT ONCE Qty: 2 0RF Rx Instructions: 240 mg subcut once. aripiprazole 5 mg tablet 5 mg PO DAILY Emgality Pen 120 mg/mL pen injector 120 mg SUBCUT .monthly Qty: 1 11RF Rx Instructions: 120 mg subcut monthly ondansetron HCl 4 mg tablet 4 mg PO Q8H PRN (Reason: nausea and vomiting) Qty: 30 0RF propranolol 10 mg tablet 10 mg PO BID Qty: 60 3RF sertraline [Zoloft] 50 mg tablet 50 mg PO DAILY topiramate [Topamax] 25 mg tablet 25 mg PO DAILY 30 Days Qty: 30 1RF amitriptyline 25 mg tablet 25 mg PO DAILY Qty: 30 3RF Rx Instructions: Take at bedtime rizatriptan [Maxalt] 10 mg tablet 10 mg PO Q2H PRN (Reason: migraine headache) Qty: 10 3RF Rx Instructions: do not exceed 2 doses per 24 hrs ibuprofen 800 mg tablet 800 mg PO Q8H PRN (Reason: pain) Qty: 21 0RF diclofenac sodium 75 mg tablet,delayed release (DR/EC) 75 mg PO Q12H PRN (Reason: pain) Qty: 20 0RF hydrocodone-acetaminophen 5-325 mg tablet 1 tab PO Q8H PRN (Reason: pain (scale score 7-10)) Qty: 6 0RF Discharge Orders: Discharge ED (Routine); Ordered 12/22/23 Ordered By: Angella Gore Referrals: Kwaku Barber MD [Primary Care Provider] - Activity Restrictions/Additional Instructions: As we discussed, I would like you to follow-up with your primary care provider or OB provider if symptoms persist. If you begin developing leg swelling, redness, increased pain, severe calf pain, significant shortness of breath or difficulty breathing, or any other concerns you may have. I would like you to immediately return to the emergency department for further evaluation. Coding Level of Care Code ED Retirement Sales Consultant for Esthela Garces
[2023-12-22 21:18] VITALS: BP 111/65; PULSE 94; RESP 16; O2SAT 99
[2023-12-22 21:51] VITALS: BP 126/100; PULSE 83; O2SAT 96
== END 2023-12-22 21:52 | disposition home or self-care (01) ==
PROVIDERS: Emergency Provider Physician Assistant; PCP Family Medicine
DX: M79.605 Pain in left leg (principal); O26.892 Other specified pregnancy related conditions, second trimester; Z3A.19 19 weeks gestation of pregnancy; Z86.718 Personal history of other venous thrombosis and embolism
CPT/HCPCS: 93971; 99284

== ENCOUNTER 2024-01-15 22:18 | Outpatient (CLI) | payer MEDICAID, SELFPAY ==
[2024-01-15] VITALS (8 sets, daily range): BP systolic 108–126; BP diastolic 61–79; PULSE 90–107; RESP 16; BMI 27.3
[2024-01-15] MEDS: acetaminophen 500 mg Tablet 1000 MG PO (23:13)
[2024-01-15 23:14] LABS: Bilirubin Urine Negative (Negative); Blood Urine Negative (Negative); Glucose Urine UA Negative (Normal); Ketones Urine Negative (Negative); Leukocyte Esterase Urine 2+ (Negative); Nitrate Urine Negative (Negative); Protein Urine Trace (Negative); Specific Gravity, Urine 1.023 (1.005-1.030); Urine Appearance Cloudy (CLEAR); Urine Color Yellow (Yellow)
[2024-01-15 23:16] LABS: Add Urine Microscopic? YES; Bacteria Urine 4+ /hpf; Hyaline Casts Urine 2.46 /lpf; Universal Test for UA Present (0); WBC Urine 21-50 /hpf (0-5)
[2024-01-15 23:28] LABS: Add Urine Culture? No
[2024-01-15 23:30] LABS: Urine Creatinine 174 mg/dL (28-217); Urine Protein Random 14 mg/dL
[2024-01-15 23:36] LABS: UPRO/UCREAT Ratio 0.08 mg/mg CR
== END 2024-01-15 23:59 | disposition home or self-care (01) ==
LOC: OPOB 22:19 → OBGYN 22:34
PROVIDERS: PCP Family Medicine; Visit Provider Family Medicine
DX: O26.899 Other specified pregnancy related conditions, unspecified trimester (principal); Z3A.00 Weeks of gestation of pregnancy not specified; R51.9 Headache, unspecified; R04.0 Epistaxis
CPT/HCPCS: 81001; 82570; 84156; 87086; 99211

== ENCOUNTER 2024-01-16 13:01 | Emergency (ER) | payer MEDICAID, SELFPAY ==
[2024-01-16 13:17] VITALS: BP 124/77; PULSE 106; RESP 18; TEMP 37.2; O2SAT 99; BMI 27.3
--- NOTE | 2024-01-16 14:29 | ED_ITS ---
HPI - Female Genitourinary 2 General: Chief complaint: Urogenital-Female Stated complaint: headache, neck, back and side pain, fever - 22 wks Time Seen by Provider: 01/16/24 14:19 History of Present Illness: 23-year-old female comes in today with h eadache neck and throat discomfort for the last 2 to 3 days. Patient was seen yesterday by TOWER DIRECTOR and was noted to have a urinary tract infection and was called in antibiotics to the pharmacy. Patient reports that she has yet to picker/puller the antibiotics and was concerned due to her symptoms. Patient states it did not remind her of a urinary tract infection. Patient appears mildly unwell but nontoxic. Patient reports no vaginal discharge or drainage. Patient reports no lower abdominal pain. Associated symptoms: Reports headache(s) Related Data Home Medications Medication Instructions Recorded Confirmed enoxaparin 40 mg/0.4 mL 40 mg SUBCUT DAILY 01/15/24 01/15/24 subcutaneous syringe iron 1 tab PO DAILY 01/15/24 01/15/24 Previous Rx's Medication Instructions Recorded cephalexin 500 mg capsule 500 mg PO TID 7 days #21 caps 01/16/24 Allergies Allergy/AdvReac Type Severity Reaction Status Date / Time No Known Allergies Allergy Verified 01/16/24 13:21 Review of Systems 2 General: Reports: 10 or more systems reviewed and unremarkable except in HPI and below Const: Reports: malaise ENMT: Reports: throat pain Neuro: Reports: headache(s) PFS ED 2 PFSH: Medical History Deep vein thrombosis (DVT) affecting Social History Smoking and tobacco/nicotine status: never used tobacco/nicotine Alcohol intake: never Substance/Drug Use: never Number of children: 1 Physical Exam 2 Const: COMMON NORMALS: alert HENMT: COMMON NORMALS: normocephalic HEAD & SCALP: normocephalic THROAT: posterior oropharynx abnormal erythema Neck/C-Spine: COMMON NORMALS: full ROM Resp: COMMON NORMALS: normal respiratory effort and clear to auscultation bilaterally AUSCULTATION: clear to auscultation bilaterally Cardio: COMMON NORMALS: regular rate and regular rhythm RATE: regular rate RHYTHM: regular rhythm Back/Pelvis: COMMON NORMALS: thoracic and lumbar spine normal to inspection Extremity: COMMON NORMALS: normal to inspection Neuro: SENSORIUM/ORIENTATION: Yes alert Skin: COMMON NORMALS: turgor normal GENERAL SKIN EXAM: turgor normal Course 2 Vital Signs: Vital signs: Vital Signs Temperature 99.0 F 01/16/24 13:17 Pulse Rate 106 H 01/16/24 13:17 Respiratory Rate 18 01/16/24 13:17 Blood Pressure 124/77 01/16/24 13:17 Pulse Oximetry 99 01/16/24 13:17 Oxygen Delivery Me thod Room Air 01/16/24 13:17 MDM - Female Medical Decision Making 23-year-old female comes in today for complaints of sore throat, malaise, and headache. Patient been seen yesterday and was diagnosed with urinary tract infection but patient feels that is not a urinary tract infection and wanted to be seen for persistent symptoms. Patient appears nontoxic. Posterior pharynx is erythematous. Lungs are clear to auscultation. Abdomen soft nontender. Vital signs normal except for some mild elevation in pulse at 106. Differential diagnosis includes upper respiratory infection, strep pharyngitis, urinary tract infection, sepsis, pyelonephritis. Patient strep test was positive. CBC, CMP, and urinalysis were unremarkable. Patient was treated for headache with Reglan and diphenhydramine and 250 mL of sodium chloride. Patient was given 1 g of Rocephin IV. Patient be continued on cephalexin for the treatment of her strep throat. Patient reported understanding of care plan need for follow-up or return to the ER. Lab Data 01/16/24 15:18 01/16/24 15:18 Laboratory Results WBC 9.39 10^3/uL (3.29-11.43) 01/16/24 15:18 RBC 4.15 10^6/uL (3.85-5.65) 01/16/24 15:18 Hgb 13.30 g/dL (11.27-16.99) 01/16/24 15:18 Hct 39.3 % (36-47) 01/16/24 15:18 MCV 94.7 fl (85-98) 01/16/24 15:18 MCH 32.0 pg (27-33) 01/16/24 15:18 MCHC 33.8 g/dL (30-55) 01/16/24 15:18 RDW 13.3 % (12.1-15.1) 01/16/24 15:18 Plt Count 137 10^3/cmm (157-399) L 01/16/24 15:18 MPV 12.1 fL (7.4-10.4) H 01/16/24 15:18 Neut % (Auto) 88.8 % 01/16/24 15:18 Lymph % (Auto) 6.8 % 01/16/24 15:18 [place] % (Auto) 3.8 % 01/16/24 15:18 Eos % (Auto) 0.0 % 01/16/24 15:18 Baso % (Auto) 0.2 % 01/16/24 15:18 Neut # (Auto) 8.33 10^3/uL (1.8-7.7) H 01/16/24 15:18 Lymph # (Auto) 0.6 10^3/uL (0.8-4.8) L 01/16/24 15:18 [place] # (Auto) 0.4 10^3/uL (0.2-0.9) 01/16/24 15:18 Eos # (Auto) 0.0 10^3/uL (0.0-0.8) 01/16/24 15:18 Baso # (Auto) 0.0 10^3/uL (0.0-0.1) 01/16/24 15:18 Nucleated RBC % (auto) 0 % 01/16/24 15:18 Nucleated RBCs # 0.0 /100WBC 01/16/24 15:18 Sodium 133 mmol/L (136-145) L 01/16/24 15:18 Potassium 3.9 mmol/L (3.5-5.1) 01/16/24 15:18 Chloride 99 mmol/L (98-107) 01/16/24 15:18 Carbon Dioxide 23 mmol/L (22-29) 01/16/24 15:18 Anion Gap 14.9 (5-19) 01/16/24 15:18 BUN 6 mg/dL (6-20) 01/16/24 15:18 Creatinine 0.5 mg/dL (0.5-0.9) 01/16/24 15:18 GFR Calculation 152.9 mL/min (90-130) H 01/16/24 15:18 Glucose 84 mg/dL (65-115) 01/16/24 15:18 Calculated Osmolality 273 mOsm/kg (285-295) L 01/16/24 15:18 Calcium 9.1 mg/dL (8.5-10.5) 01/16/24 15:18 Total Bilirubin 0.7 mg/dL (0.15-1.2) 01/16/24 15:18 AST 17 U/L (0-32) 01/16/24 15:18 ALT 11 U/L (0-33) 01/16/24 15:18 Alkaline Phosphatase 102 U/L (35-105) 01/16/24 15:18 Total Protein 7.1 g/dL (6.6-8.7) 01/16/24 15:18 Albumin 3.8 g/dL (3.5-5.2) 01/16/24 15:18 Globulin 3.3 g/dL (1.3-4.6) 01/16/24 15:18 Urine Color [place] (Yellow) A 01/16/24 15:11 Urine Appearance Cloudy (CLEAR) A 01/16/24 15:11 Urine pH 7.0 (5-7) 01/16/24 15:11 Ur Specific [place] 1.022 (1.005-1.030) 01/16/24 15:11 Urine Protein Trace (Negative) A 01/16/24 15:11 Urine Glucose (UA) Negative (Normal) 01/16/24 15:11 Urine Ketones Trace (Negative) 01/16/24 15:11 Urine Blood Negative (Negative) 01/16/24 15:11 Urine Nitrate Negative (Negative) 01/16/24 15:11 Urine Bilirubin Negative (Negative) 01/16/24 15:11 Urine Urobilinogen 1.0 mg/dL (Negative) 01/16/24 15:11 Ur Leukocyte Esterase 3+ (Negative) A 01/16/24 15:11 Urine RBC 3-5 /hpf (0-2) 01/16/24 15:11 Urine WBC 0-5 /hpf (0-5) 01/16/24 15:11 Ur Squamous Epith Cells 21-50 /hpf (0-5) 01/16/24 15:11 Amorphous Sediment Not Reportable 01/16/24 15:11 Urine Bacteria 4+ /hpf (NONE) H 01/16/24 15:11 Hyaline Casts 2.46 /lpf 01/16/24 15:11 Group A Strep Rapid Positive (Negative) H 01/16/24 14:39 No radiology studies performed this visit Discharge Plan Discharge Patient Disposition: Home Clinical Impression: Pharyngitis, streptococcal, acute Condition: Stable Prescriptions: New cephalexin 500 mg capsule 500 mg PO TID 7 Days Qty: 21 0RF No Action enoxaparin 40 mg/0.4 mL syringe 40 mg SUBCUT DAILY iron 1 tab PO DAILY Discharge Orders: Discharge ED (Routine); Ordered 01/16/24 Ordered By: Jerad Judd Referrals: Kwaku Barber MD [Primary Care Provider] - Discharge Diet: Usual diet Discharge Activity: Increase activity as tolerated Patient Instructions: Strep Throat (ED) Activity Restrictions/Additional Instructions: Use acetaminophen for pain and fever. Take oral antibiotics as directed. I have sent a prescription of cephalexin 500 mg 3 times a day for the next 7 days. This will cover for urinary tract infection along with the strep. Do not take antibiotics that was prescribed from the TOWER DIRECTOR at the same time as the cephalexin. Follow-up with primary care or TOWER DIRECTOR in 1 week for recheck. Return to ED for new concerns or worsening symptoms. Coding Level of Care Code ED Traffic Investigator for Esthela Garces
[2024-01-16 14:48] LABS: Rapid Strep A Test Positive (Negative)
[2024-01-16] MEDS: metoclopramide 5 mg/mL SDV 2 mL 10 MG IVP (15:19)
[2024-01-16] MEDS: cefTRIAXone 1,000 mg SDV 1000 MG IVP (15:19)
[2024-01-16] MEDS: diphenhydrAMINE 50 mg/mL SDV 1mL 12.5 MG IVP (15:19)
[2024-01-16] MEDS: sodium chloride 0.9% 250 ML IV (15:20)
[2024-01-16 15:26] LABS: Bilirubin Urine Negative (Negative); Blood Urine Negative (Negative); Glucose Urine UA Negative (Normal); Ketones Urine Trace (Negative); Leukocyte Esterase Urine 3+ (Negative); Nitrate Urine Negative (Negative); Protein Urine Trace (Negative); Specific Gravity, Urine 1.022 (1.005-1.030); Urine Appearance Cloudy (CLEAR)
[2024-01-16 15:29] LABS: Basophils % 0.2 %; Hematocrit 39.3 % (36-47); Lymphocytes # 0.6 10^3/uL (0.8-4.8); Lymphocytes % 6.8 %; Mean Corpuscular HGB Conc 33.8 g/dL (30-55); Mean Corpuscular Volume 94.7 fl (85-98); Mean Platelet Volume 12.1 fL (7.4-10.4); Monocytes # 0.4 10^3/uL (0.2-0.9); Monocytes % 3.8 %; Neutrophils # 8.33 10^3/uL (1.8-7.7); Neutrophils % 88.8 %; Nucleated Red Blood Cells % 0 %; Platelet Count 137 10^3/cmm (157-399); Red Blood Count 4.15 10^6/uL (3.85-5.65); Red Cell Distribution Width 13.3 % (12.1-15.1); White Blood Count 9.39 10^3/uL (3.29-11.43)
[2024-01-16 15:29] LABS: Add Urine Microscopic? YES; Bacteria Urine 4+ /hpf; Hyaline Casts Urine 2.46 /lpf; Squamous Epithelial Cell Urine 21-50 /hpf (0-5); WBC Urine 0-5 /hpf (0-5)
[2024-01-16 15:32] LABS: Urine Color Orange (Yellow)
[2024-01-16 15:41] LABS: Alanine Aminotransferase 11 U/L (0-33); Albumin Level 3.8 g/dL (3.5-5.2); Alkaline Phosphatase 102 U/L (35-105); Anion Gap 14.9 (5-19); Aspartate Amino Transferase 17 U/L (0-32); Blood Urea Nitrogen 6 mg/dL (6-20); Calcium 9.1 mg/dL (8.5-10.5); Carbon Dioxide 23 mmol/L (22-29); Chloride 99 mmol/L (98-107); Creatinine Clr Calc Pharmacy 202.4526; Globulin 3.3 g/dL (1.3-4.6); Glomerular Filtration Rate 152.9 mL/min (90-130); Glucose 84 mg/dL (65-115); Osmolality Calculated 273 mOsm/kg (285-295); Potassium 3.9 mmol/L (3.5-5.1); Sodium 133 mmol/L (136-145); Total Bilirubin 0.7 mg/dL (0.15-1.2); Total Protein 7.1 g/dL (6.6-8.7)
[2024-01-16 16:33] LABS: Adenovirus Not Detected (NOT DETECT); Chlamydia Pneumoniae Not Detected (NOT DETECT); Coronavirus 229E,HKU1,NL63,OC4 Not Detected (NOT DETECT); Human Metapneumovirus Not Detected (NOT DETECT); Human Rhinovirus/Enterovirus Not Detected (NOT DETECT); Influenza A Not Detected (NOT DETECT); Influenza A H1 Not Detected (NOT DETECT); Influenza A H1-2009 Not Detected (NOT DETECT); Influenza A H3 Not Detected (NOT DETECT); Influenza B Not Detected (NOT DETECT); Mycoplasma Pneumoniae Not Detected (NOT DETECT); Parainfluenza Virus Type 1 Not Detected (NOT DETECT); Parainfluenza Virus Type 2 Not Detected (NOT DETECT); Parainfluenza Virus Type 3 Not Detected (NOT DETECT); Parainfluenza Virus Type 4 Not Detected (NOT DETECT); Respiratory Syncytial Virus A Not Detected (NOT DETECT); Respiratory Syncytial Virus B Not Detected (NOT DETECT); SARS-COV-2 Not Detected (NOT DETECT)
[2024-01-16 17:11] VITALS: BP 127/81; PULSE 88; RESP 16; O2SAT 98
== END 2024-01-16 16:36 | disposition home or self-care (01) ==
PROVIDERS: Emergency Provider Nurse Practitioner Family; PCP Family Medicine
DX: J02.0 Streptococcal pharyngitis (principal)
CPT/HCPCS: 36415; 80053; 81001; 85025; 87486; 87581; 87633; 87880; 96374; 96375; 99284; J0696; J1200; J2765; J7050

== ENCOUNTER 2024-02-21 14:51 | Oncology outpatient (recurring) (ONCR) | payer MEDICAID, SELFPAY ==
[2024-02-21] MEDS: rho(d) immune globulin 1,500 unit Syringe 1500 UNIT IM (15:09)
[2024-02-21 15:13] VITALS: BP 122/74; PULSE 68; RESP 16; TEMP 36.6; O2SAT 98
== END 2024-03-11 23:59 | disposition home or self-care (01) ==
LOC: ONCMED 14:52
PROVIDERS: PCP Family Medicine; Visit Provider Family Medicine
DX: Z67.91 Unspecified blood type, Rh negative (principal); Z79.899 Other long term (current) drug therapy
CPT/HCPCS: 96372; J2790

== ENCOUNTER 2024-05-02 21:00 | Inpatient (IN) | payer MEDICAID, SELFPAY ==
[2024-05-02] VITALS (8 sets, daily range): BP systolic 117–128; BP diastolic 77–80; PULSE 74–100; RESP 16; BMI 30.4
[2024-05-02] MEDS: miSOPROStol 100 mcg tablet 25 MCG VAGINAL (22:00)
[2024-05-02 22:05] LABS: Basophils % 0.1 %; Eosinophils # 0.1 10^3/uL (0.0-0.8); Eosinophils % 0.5 %; Lymphocytes # 1.6 10^3/uL (0.8-4.8); Lymphocytes % 15.7 %; Mean Corpuscular HGB Conc 34.6 g/dL (30-55); Mean Corpuscular Volume 92.4 fl (85-98); Mean Platelet Volume 12.1 fL (7.4-10.4); Monocytes # 0.4 10^3/uL (0.2-0.9); Monocytes % 4.1 %; Neutrophils % 79.1 %; Nucleated Red Blood Cells % 0 %; Platelet Count 143 10^3/cmm (157-399); Red Blood Count 4.22 10^6/uL (3.85-5.65); White Blood Count 9.86 10^3/uL (3.29-11.43)
[2024-05-03] VITALS (42 sets, daily range): BP systolic 103–133; BP diastolic 56–89; PULSE 67–139; RESP 14–18; TEMP 36.6–36.7; O2SAT 89–100; BMI 30.4
[2024-05-03] MEDS: miSOPROStol 100 mcg tablet 25 MCG VAGINAL (02:00)
[2024-05-03] MEDS: oxytocin 30 UNIT/500 ML BAG 600 UNIT IV (06:12)
[2024-05-03] MEDS: dextrose 5%-lactated ringers 1,000 ML 125 ML IV (06:13)
[2024-05-03] MEDS: tranexamic acid 1,000 MG/100 ML PREMIX 600 MG IV (06:23)
--- NOTE | 2024-05-03 06:31 | PM.OPHPUD ---
Labor & Delivery H&P Update Date of Procedure: May 03, 2024 Date H&P Performed: 05/02/24 Changes to previous documentation: None Admission Diagnosis: 23-year-old 3 para 2-0-0-2 at 38 weeks estimated gestational age History of DVT on anticoagulation Planned procedure: Spontaneous vaginal delivery Other information: The patient presents for an induction due to requiring anticoagulation during her , and a desire for her to be off of it 48 hours prior to delivery. In addition that she has had fast labors in the past so would prefer to have a controlled induction and delivery process after we have had her off of her enoxaparin for 48 hours. Otherwise her has been relatively unremarkable. She has had consistent care. Her blood type is B-. Her antibody screen is negative. She passed her glucose screen. She is rubella nonimmune. She is GBS negative. The remainder of her infectious disease profile is within normal limits. Related Problem List Diagnoses (1) Deep vein thrombosis (DVT) affecting : (2) Hypercoagulable state: (3) 38 weeks gestation of : A&P Assessment and plan (1) Deep vein thrombosis (DVT) affecting : Status: Acute (2) Hypercoagulable state: Status: Acute (3) 38 weeks gestation of : I anticipate routine labor and vaginal delivery with Cytotec induction. Status: Acute
--- NOTE | 2024-05-03 06:36 | PM.DELIVERY ---
Delivery Note: Date of delivery: May 03, 2024 Pre-delivery diagnoses: 23-year-old 3 para 2-0-0-2 at 38 weeks estimated gestational age History of DVT requiring prophylaxis during her Post-delivery diagnoses: Status post spontaneous vaginal delivery Procedure: Spontaneous vaginal delivery Delivering Physician: Yony Trujillo Estimated blood loss (mL): 500 Pre-Delivery Course: The patient presented to the hospital for induction. Cytotec 25 mcg x 2 were placed. Some deep late and variable decelerations were noted. She then progressed from 8 to complete within a few minutes, then delivered her baby within several pushes. Some clots were noted to be delivered at the time of delivery. Delivery: DELIVERY: The patient progressed to complete without difficulty. She delivered a female with a weight of 7 pounds 2 ounces with Apgars of 7, 9. The baby was delivered from the GOYO position and placed on the mother's abdomen. The cord was then clamped and cut. A body cord x 1 was noted. The baby was delivered through the cord.. There was no meconium. The placenta and 3 vessel cord were delivered intact shortly thereafter. The perineum and vaginal vault were carefully examined. I performed a cervical examination and did not see any obvious tears. No lacerations were noted. Both the mother and the baby were in stable condition. Post-Delivery Status: Good A&P Assessment and plan (1) Vaginal delivery: I anticipate routine care. Coding Level of Care Code Acute Code for Chg Fwd Diagnoses Vaginal delivery O80
[2024-05-03] MEDS: docusate sodium 100 mg Capsule PO (09:35)
[2024-05-03] MEDS: benzocaine-menthol 78 gm Canister 1 SPRAY TOPICAL (10:19)
[2024-05-03 10:44] LABS: Hematocrit 38.3 % (36-47); Mean Corpuscular HGB Conc 32.9 g/dL (30-55); Mean Corpuscular Hemoglobin 31.9 pg (27-33); Mean Platelet Volume 12.1 fL (7.4-10.4); Platelet Count 130 10^3/cmm (157-399); Red Blood Count 3.95 10^6/uL (3.85-5.65); Red Cell Distribution Width 12.9 % (12.1-15.1); White Blood Count 12.94 10^3/uL (3.29-11.43)
[2024-05-03] MEDS: HYDROcodone-acetaminophen 5-325 mg Tablet PO (18:33)
[2024-05-04 04:00] VITALS: BP 102/63; PULSE 66; RESP 18; TEMP 36.6
[2024-05-04 04:17] LABS: Hematocrit 34.1 % (36-47); Mean Corpuscular HGB Conc 33.4 g/dL (30-55); Mean Corpuscular Hemoglobin 32.5 pg (27-33); Mean Corpuscular Volume 97.2 fl (85-98); Platelet Count 127 10^3/cmm (157-399); Red Blood Count 3.51 10^6/uL (3.85-5.65); Red Cell Distribution Width 13.3 % (12.1-15.1); White Blood Count 8.01 10^3/uL (3.29-11.43)
--- NOTE | 2024-05-04 06:48 | P.DS_ITS ---
Discharge Providers DIRECTOR OF [employer]MI[employer] SEAT SALES Date of Admission: 05/02/24 21:00 Date of Discharge: 05/04/24 Attending Provider at Admission: Yony Trujillo MD Attending Provider at Discharge: Yony Trujillo MD Primary Care Provider: Kwaku Barber MD Diagnoses at Discharge Discharge Diagnosis (1) Deep vein thrombosis (DVT) affecting : Status: Acute (2) Hypercoagulable state: Status: Acute (3) 38 weeks gestation of : Status: Acute Reason for Visit Reason for Visit: IOL Hospital Course Hospital Course Presented to the hospital for induction due to history of DVT requiring anticoagulation Information Peripartum Data: Infant Delivery Method: Vaginal Physical Exam Narrative: The patient is alert. She appears comfortable. Her heart has a regular rate and rhythm with no murmurs appreciated. Lungs are clear to auscultation bilaterally. Her fundus is firm and below the umbilicus. Discharge Data Studies Completed and Pending Laboratory Results WBC 8.01 10^3/uL (3.29-11.43) 05/04/24 04:01 RBC 3.51 10^6/uL (3.85-5.65) L 05/04/24 04:01 Hgb 11.40 g/dL (11.27-16.99) 05/04/24 04:01 Hct 34.1 % (36-47) L 05/04/24 04:01 MCV 97.2 fl (85-98) 05/04/24 04:01 MCH 32.5 pg (27-33) 05/04/24 04:01 MCHC 33.4 g/dL (30-55) 05/04/24 04:01 RDW 13.3 % (12.1-15.1) 05/04/24 04:01 Plt Count 127 10^3/cmm (157-399) L 05/04/24 04:01 MPV 12.0 fL (7.4-10.4) H 05/04/24 04:01 Neut % (Auto) 79.1 % 05/02/24 21:21 Lymph % (Auto) 15.7 % 05/02/24 21: [place] % (Auto) 4.1 % 05/02/24 21: Eos % (Auto) 0.5 % 05/02/24: Baso % (Auto) 0.1 % 05/02/24 21:21 Neut # (Auto) 7.80 10^3/uL (1.8-7.7) H 05/02/24 21: Lymph # (Auto) 1.6 10^3/uL (0.8-4.8) 05/02/24 21:21 [place] # (Auto) 0.4 10^3/uL (0.2-0.9) 05/02/24 21:21 Eos # (Auto) 0.1 10^3/uL (0.0-0.8) 05/02/24 21:21 Baso # (Auto) 0.0 10^3/uL (0.0-0.1) 05/02/24 21: Nucleated RBC % (auto) 0 % 05/02/24: Nucleated RBCs # 0.0 /100WBC 05/02/24 21: Blood Type B Negative 05/02/24 21: Rho(D) Type Rh negative 05/02/24 21: Antibody Screen Negative 05/02/24 21: Screen Negative (Negative) 05/03/24 10:29 Vitals Last Vital Signs Temp 97.8 F 05/04/24 04:00 Pulse 66 05/04/24 04:00 Resp 18 05/04/24 04:00 BP 102/63 05/04/24 04:00 Pulse Ox 98 05/03/24 22:00 O2 Del Method Room Air 05/03/24 22:00 O2 Flow Rate 10 05/03/24 05:54 Results Labs OB ([facility]): Blood Type B Negative 05/02/24 Antibody Screen Negative 05/02/24 Hct 34.1 % (36-47) L 05/04/24 Hgb 11.40 g/dL (11.27-16.99) 05/04/24 Rho(D) Type Rh negative 05/02/24 Plt Count 127 10^3/cmm (157-399) L 05/04/24 HCG, Qual Negative (Negative) 06/30/23 Micro Urine Specimen 01/15/24 Discharge Plan Discharge Patient Disposition: Home Condition: Stable Prescriptions: New hydrocodone-acetaminophen 5-325 mg Tablet 1 tab PO Q6H PRN (Reason: Moderate To Severe Pain) Qty: 10 0RF Eliquis 5 mg tablet 2.5 mg PO BID Qty: 30 0RF Continued iron 1 tab PO DAILY Discharge Orders: Discharge Order (Routine); Ordered 05/04/24 Ordered By: Yony Trujillo Referrals: Yony Trujillo MD [Physician] - 06/14/24 9:30 am Discharge Diet: Usual diet Discharge Activity: Limit activity as instructed Patient Instructions: Depression (DC), Opioid Safety (DC), Preeclampsia and Eclampsia After Delivery (GEN), Hemorrhage (DC), OB Discharge Report, OB Food/Drug Interaction Guide, OB Care at Home, Opioid Safety, OB Vaginal Deliveries, Abnormal Bleeding Discharge Attestations DIRECTOR OF [employer] Status at Discharge: Cognitive status at discharge: cognitively intact , Behavioral status at discharge: cooperative , Coding Level of Care Code Acute Code for Chg Fwd Diagnoses Deep vein thrombosis (DVT) affecting O22.30 Hypercoagulable state D68.59 38 weeks gestation of Z3A.38
[2024-05-04 09:45] VITALS: BP 111/82; PULSE 83; RESP 16; TEMP 36.6; O2SAT 97
== END 2024-05-04 09:45 | disposition home or self-care (01) | DRG 806 ==
LOC: OBGYN 05-03 01:36 → OPOB 05-03 11:02 → OBGYN 05-03 11:02
PROVIDERS: Admitting Provider Family Medicine; PCP Family Medicine; Visit Provider Family Medicine
DX: O87.1 Deep phlebothrombosis in the puerperium (principal); I82.409 Acute embolism and thrombosis of unspecified deep veins of unspecified lower extremity; Z37.0 Single live birth; O99.12 Other diseases of the blood and blood-forming organs and certain disorders involving the immune mechanism complicating childbirth; O76 Abnormality in fetal heart rate and rhythm complicating labor and delivery; O69.81X0 Labor and delivery complicated by cord around neck, without compression, not applicable or unspecified; Z3A.38 38 weeks gestation of pregnancy
CPT/HCPCS: 36415; 36430; 59025; 59409; 85025; 85027; 85460; 86850; 86900; 90384; 90471; 99211; J2590; J7121